=== PATIENT | female | born 1980 | race African-American/Black ===

== ENCOUNTER 2017-10-30 10:59 | Inpatient (IN) | payer SELFPAY ==
[2017-10-30] MEDS ORDERED: NORMAL SALINE 1000 ML 1,000 ML IV ONE (12:59)
[2017-10-30] MEDS ORDERED: ONDANSETRON HCL INJ/PF 4 MG/2 ML SDV IV ONE (12:59)
[2017-10-30 13:41] LABS: ABSOLUTE BASOPHILS # (AUTO) 0.1 10^3/uL (0.0-0.2); ABSOLUTE LYMPHOCYTES (AUTO) 1.9 10^3/uL (0.5-4.7); ABSOLUTE MONOCYTES (AUTO) 1.9 10^3/uL (0.1-1.4); ABSOLUTE NEUT (AUTO) 15.8 10^3/uL (1.7-8.2); BASOPHILS % (AUTO) 0.4 % (0-2); EOSINOPHILS % (AUTO) 0.1 % (0-6); HEMATOCRIT 39.2 % (36.0-47.0); HEMOGLOBIN 13.3 g/dL (12.0-15.5); LYMPHOCYTES % (AUTO) 9.8 % (13-45); MEAN CORPUSCULAR HEMOGLOBIN 29.7 pg (27.0-33.4); MEAN CORPUSCULAR HGB CONC 33.9 g/dL (32.0-36.0); MEAN CORPUSCULAR VOLUME 88 fl (80-97); MONOCYTES % (AUTO) 9.9 % (3-13); PLATELET COUNT 361 10^3/uL (150-450); RED BLOOD COUNT 4.48 10^6/uL (3.72-5.28); RED CELL DISTRIBUTION WIDTH 13.4 % (11.5-14.0); SEGMENTED NEUTROPHILS % (AUTO) 79.8 % (42-78); TOTAL CELLS COUNTED % (AUTO) 100 %; WHITE BLOOD COUNT 19.7 10^3/uL (4.0-10.5)
[2017-10-30 13:53] LABS: ALANINE AMINOTRANSFERASE 23 U/L (9-52); ALBUMIN 4.4 g/dL (3.5-5.0); ALKALINE PHOSPHATASE 67 U/L (38-126); ANION GAP 8 (5-19); ASPARTATE AMINO TRANSFERASE 29 U/L (14-36); BILIRUBIN,DIRECT 0.4 mg/dL (0.0-0.4); BILIRUBIN,TOTAL 0.9 mg/dL (0.2-1.3); BLOOD UREA NITROGEN 9 mg/dL (7-20); CALCIUM 9.4 mg/dL (8.4-10.2); CARBON DIOXIDE 29 mmol/L (22-30); CHLORIDE 101 mmol/L (98-107); GLUCOSE 123 mg/dL (75-110); LIPASE 22.2 U/L (23-300); SODIUM 137.9 mmol/L (137-145); TOTAL PROTEIN 7.9 g/dL (6.3-8.2)
[2017-10-30] MEDS ORDERED: CEFTRIAXONE INJ 1000 MG VIAL IV ONE (14:41)
[2017-10-30 14:45] LABS: APPEARANCE,URINE CLEAR; BILIRUBIN,URINE NEGATIVE (NEGATIVE); COLOR,URINE YELLOW; GLUCOSE, URINE NEGATIVE (NEGATIVE); KETONES,URINE NEGATIVE (NEGATIVE); LEUKOCYTE ESTERASE,URINE NEGATIVE (NEGATIVE); NITRITE,URINE NEGATIVE (NEGATIVE); PROTEIN,URINE NEGATIVE (NEGATIVE); URINE SPECIFIC GRAVITY 1.015; UROBILINOGEN,URINE NEGATIVE mg/dL (<2.0)
--- NOTE | 2017-10-30 15:40 | ER Document Report ---
ED General - General Chief Complaint: Pain All Over Stated Complaint: SIDE PAIN Time Seen by Provider: 10/30/17 12:58 Mode of Arrival: Ambulatory Information source: Patient Notes: 37-year-old female diabetic presents with complaints of right flank pain urinary frequency over the past day. Patient notes body aches fever today. She denies any vomiting admits to nausea TRAVEL OUTSIDE OF THE [place] IN LAST 30 DAYS: No - HPI Onset: Yesterday Onset/Duration: Persistent Quality of pain: Achy Severity: Mild Pain Level: 1 Associated symptoms: Body/muscle aches, Fever, Other Exacerbated by: Denies Relieved by: Denies Similar symptoms previously: No Recently seen / treated by doctor: No - Related Data Allergies/Adverse Reactions: No Known Allergies Allergy (Verified 10/30/17 11:00) Past Medical History - Social History Smoking Status: Never Smoker Cigarette use (# per day): No Chew tobacco use (# tins/day): No Smoking Education Provided: No Frequency of alcohol use: Occasional Drug Abuse: None Family History: Reviewed & Not Pertinent Patient has suicidal ideation: No Patient has homicidal ideation: No - Past Medical History Cardiac Medical History: Reports: Hx Hypertension Endocrine Medical History: Reports: Hx Diabetes Mellitus Type 2 Renal/ Medical History: Denies: Hx Peritoneal Dialysis - Immunizations Hx Diphtheria, Pertussis, Tetanus Vaccination: No Review of Systems - Review of Systems Notes: REVIEW OF SYSTEMS: CONSTITUTIONAL : Admits to fever EENT: Denies eye, ear, throat, or mouth pain or symptoms. Denies nasal or sinus congestion or discharge. Denies throat, tongue, or mouth swelling or difficulty swallowing. CARDIOVASCULAR: Denies chest pain. Denies palpitations or racing or irregular heart beat. Denies ankle edema. RESPIRATORY: Denies cough, cold, or chest congestion. Denies shortness of breath, difficulty breathing, or wheezing. GASTROINTESTINAL: Admits to flank pain GENITOURINARY: Admits to urinary frequency FEMALE GENITOURINARY: Denies vaginal bleeding, heavy or abnormal periods, irregular periods. Denies vaginal discharge or odor. MUSCULOSKELETAL: Denies back or neck pain or stiffness. Denies joint pain or swelling. SKIN: Denies rash, lesions or sores. HEMATOLOGIC : Denies easy bruising or bleeding. LYMPHATIC: Denies swollen, enlarged glands. NEUROLOGICAL: Denies confusion or altered mental status. Denies passing out or loss of consciousness. Denies dizziness or lightheadedness. Denies headache. Denies weakness or paralysis or loss of use of either side. Denies problems with gait or speech. Denies sensory loss, numbness, or tingling. Denies seizures. PSYCHIATRIC: Denies anxiety or stress. Denies depression, suicidal ideation, or homicidal ideation. ALL OTHER SYSTEMS REVIEWED AND NEGATIVE. PHYSICAL EXAMINATION: GENERAL: Well-appearing, well-nourished and in no acute distress. Febrile HEAD: Atraumatic, normocephalic. EYES: Pupils equal round and reactive to light, extraocular movements intact, conjunctiva are normal. ENT: Nares patent, oropharynx clear without exudates. Moist mucous membranes. NECK: Normal range of motion, supple without lymphadenopathy LUNGS: Breath sounds clear to auscultation bilaterally and equal. No wheezes rales or rhonchi. HEART: Regular rate and rhythm without murmurs ABDOMEN: Soft, nontender, nondistended abdomen. No guarding, no rebound. No masses appreciated. Right CVA tenderness Female : deferred Musculoskeletal: Normal range of motion, no pitting or edema. No cyanosis. NEUROLOGICAL: Cranial nerves grossly intact. Normal speech, normal gait. Normal sensory, motor exams PSYCH: Normal mood, normal affect. SKIN: Warm, Dry, normal turgor, no rashes or lesions noted. Dictation was performed using Sequence voice recognition software Physical Exam - Vital signs Vitals: Temp Pulse Resp BP Pulse Ox 102.5 F H 98 18 127/71 H 99 10/30/17 11:13 10/30/17 11:13 10/30/17 11:13 10/30/17 11:13 10/30/17 11:13 Course - Re-evaluation Re-evalutation: 10/30/17 15:39 Patient is noted to have white count 19.7, her urine has moderate amount of blood, patient states that she has regular menses and is unsure if his menses related, no obvious sign of infection is noted on the however I will start off at a dose of Rocephin here in the emergency department, 2 bags of IV fluids have been given patient's blood sugars well controlled she overall looks well was noted to be febrile upon arrival, given on the symptoms a CT has been ordered to rule out any abnormality otherwise this may just be a viral syndrome however I have explained to the patient that I will be very cautious with her given the history of diabetes 10/30/17 15:56 Surgeon has been consulted for valuation patient my concern is for appendicitis of the CT she is interested in the patient's pain is predominantly right upper - Vital Signs Vital signs: Temp Pulse Resp BP Pulse Ox 102.5 F H 98 18 127/71 H 99 10/30/17 11:13 10/30/17 11:13 10/30/17 11:13 10/30/17 11:13 10/30/17 11:13 - Laboratory Result Diagrams: 10/30/17 13:19 10/30/17 13:19 Laboratory results interpreted by me: 10/30/17 10/30/17 10/30/17 13:05 13:19 13:19 WBC 19.7 H Seg Neutrophils % 79.8 H Lymphocytes % 9.8 L Absolute Neutrophils 15.8 H Absolute Monocytes 1.9 H Glucose 123 H Lipase 22.2 L Urine Blood MODERATE H Discharge - Discharge Clinical Impression: Diverticulitis Fever Qualifiers: Fever type: unspecified Qualified Code(s): R50.9 - Fever, unspecified Abdominal pain Qualifiers: Abdominal location: right upper quadrant Qualified Code(s): R10.11 - Right upper quadrant pain Condition: Fair Disposition: ADMITTED INPATIENT Admitting Provider: Hospitalist Unit Admitted: Telemetry
[2017-10-30] MEDS ORDERED: METRONIDAZOLE 500 MG/NS RTU 250 MG in CONTAINER,EMPTY 1 EACH IV SCH (16:15)
--- NOTE | 2017-10-30 16:17 | RADIOLOGY REPORT (SQ) ---
EXAM DESCRIPTION: CT ABD/PELVIS WITH IV ONLY COMPLETED DATE/TIME: 10/30/2017 3:51 pm REASON FOR STUDY: abd pain COMPARISON: None. TECHNIQUE: CT scan of the abdomen and pelvis performed using helical scanning technique with dynamic intravenous contrast injection. No oral contrast. Images reviewed with lung, soft tissue, and bone windows. Reconstructed coronal and sagittal MPR images reviewed. Delayed images for evaluation of the urinary system also acquired. All images stored on PACS. All CT scanners at this facility use dose modulation, iterative reconstruction, and/or weight based d osing when appropriate to reduce radiation dose to as low as reasonably achievable (ALARA). [facility]: Dose Right [facility]: CareDose [facility]: Dose Right [facility]: Teradose 4D [facility]: [employer] CONTRAST TYPE AND DOSE: contrast/concentration: Isovue 370.00 mg/ml; Total Contrast Delivered: 100.0 ml; Total Saline Delivered: 71.0 ml RENAL FUNCTION: Creatinine 0.7 RADIATION DOSE: CT Rad equipment meets quality standard of care and radiation dose reduction techniq ues were employed. CTDIvol: 21.1 - 21.1 mGy. DLP: 2257 mGy-cm.. LIMITATIONS: None. FINDINGS: The appendix is normal. There is colon wall thickening, luminal narrowing, and surrounding inflammation along the lateral asp ect of the cecum, with an inflamed diverticulum of the right colon measuring 13 mm in diameter filled with radiopaque debris on axial image 56. These findings are worrisome for right-sided colonic dive rticulitis. No well circumscribed abscess. No extraluminal air. Findings discussed with Dr. Raul valdez, 1600 hours 10/30/2017. LOWER CHEST: No significant findings. No nodules or infiltrates. LIVER: Normal size. No masses. No dilated ducts. SPLEEN: Normal size. No focal lesions. PANCREAS: No masses. No significant calcifications. No adjacent inflammation or peripancreatic fluid collections. Pancreatic duct not dilated. GALLBLADDER: No identified stones by CT criteria. No inflammatory changes to suggest cholecystitis. ADRENAL GLANDS: No significant masses or asymmetry. RIGHT KIDNEY AND URETER: No solid masses. No significant calcifications. No hydronephrosis or hyd roureter. LEFT KIDNEY AND URETER: No solid masses. No significant calcifications. No hydronephrosis or hydr oureter. AORTA AND VESSELS: No aneurysm. No dissection. Renal arteries, SMA, celiac without stenosis. RETROPERITONEUM: No retroperitoneal adenopathy, hemorrhage or masses. BOWEL AND PERITONEAL CAVITY: Right-sided colonic diverticulitis as above. Gastrointestinal tract oth erwise unremarkable. APPENDIX: Normal. PELVIS: No mass. No free fluid. Normal bladder. Normal size uterus and ovaries. 3.5 cm cyst left o vary. ABDOMINAL WALL: No masses. No hernias. BONES: No significant or acute findings. OTHER: No other significant finding. IMPRESSION: Diverticulitis along the right colon. Local inflammation in the pericolic fat without w ell-circumscribed abscess or free air. Normal appendix TECHNICAL DOCUMENTATION: JOB ID: [id number] Quality ID # [id number]: Final reports with documentation of one or more dose reduction techniques (e.g., Au tomated exposure control, adjustment of the mA and/or kV according to patient size, use of iterative reconstruction technique) 2010 [employer]- All Rights Reserved
[2017-10-30] MEDS ORDERED: HYDROMORPHONE HCL INJ/PF 2 MG/ML AMPULE IV ONE (16:38)
[2017-10-30] MEDS: NORMAL SALINE 1000 ML 1,000 ML IV PRN ×4 (16:40→20:28)
[2017-10-30] MEDS ORDERED: CIPROFLOXACIN 400 MG/D5W RTU 400 MG/200 ML RTUPB IV SCH (18:00)
[2017-10-30] MEDS ORDERED: GLUCAGON,HUMAN RECOMB 1 MG INJ IM PRN (18:13)
[2017-10-30] MEDS ORDERED: DEXTROSE 40% GEL 15 GM TUBE PO PRN ×2 (18:13)
[2017-10-30] MEDS ORDERED: DEXTROSE 50%-WATER 25 GM/50 ML DISP.SYRIN IV PRN ×2 (18:13)
[2017-10-30] MEDS ORDERED: INSULIN LISPRO 100 UNIT/ML 3 ML VIAL SUBCUT PRN (18:13)
--- NOTE | 2017-10-30 18:34 | PDOC CONSULTATION ---
Consultation Consult Date: 10/30/17 Attending physician:: Fabian Yu Consult reason:: right colonic diverticulitis History of Present Illness Admission Date/PCP: 10/30/17 16:35 History of Present Illness: LING GOLDSTEIN is a 37 year old female who presented to the ER with right lower abdominal pain that started 2 days ago. The pain was like a bloating discomfort when it first started but by yesterday became sharper. She had several episodes of nausea and vomiting yesterday. She some urinary frequency but no constipation or diarrhea. She presented to the ER today where a CT abdomen/pelvis was obtained and confirmed the diagnosis of right sided colonic diverticulitis with a normal appearing appendix. Past Medical History Cardiac Medical History: Reports: Hypertension Endocrine Medical History: Reports: Diabetes Mellitus Type 2 Social History Smoking Status: Never Smoker Family History Family History: Reviewed & Not Pertinent Parental Family History Reviewed: No Children Family History Reviewed: Unknown Sibling(s) Family History Reviewed.: Unknown Medication/Allergy Home Medications: Cholecalciferol (Vitamin D3) [Vitamin D3] 1,000 unit PO DAILY 10/30/17 Lisinopril [Zestril] 5 mg PO DAILY 10/30/17 Metformin HCl [Glucophage 500 mg Tablet] 500 mg PO DAILY 10/30/17 Multivitamin [Multiple Vitamins] 1 tab PO DAILY 10/30/17 Allergies/Adverse Reactions: No Known Allergies Allergy (Verified 10/30/17 11:00) Physical Exam Vital Signs: Temp Pulse Resp BP Pulse Ox 102.5 F H 98 18 127/71 H 99 10/30/17 11:13 10/30/17 11:13 10/30/17 11:13 10/30/17 11:13 10/30/17 11:13 General appearance: PRESENT: no acute distress, morbidly obese Head exam: PRESENT: atraumatic, normocephalic Eye exam: PRESENT: conjunctiva pink, EOMI, PERRLA. ABSENT: scleral icterus Ear exam: PRESENT: normal external ear exam Neck exam: ABSENT: carotid bruit, JVD, lymphadenopathy, thyromegaly Respiratory exam: PRESENT: clear to auscultation [place]. ABSENT: rales, rhonchi, wheezes Cardiovascular exam: PRESENT: RRR. ABSENT: diastolic murmur, rubs, systolic murmur GI/Abdominal exam: PRESENT: rebound - RLQ and flank tenderness with rebound, tenderness Neurological exam: PRESENT: alert, awake, oriented to person, oriented to place , oriented to time, oriented to situation, CN II-XII grossly intact. ABSENT: motor sensory deficit Psychiatric exam: PRESENT: appropriate affect, normal mood. ABSENT: homicidal ideation, suicidal ideation Results Laboratory Results: 10/30/17 16:45 Lactic Acid 0.9 Impressions: Abdomen/Pelvis CT 10/30/17 14:50 IMPRESSION: Diverticulitis along the right colon. Local inflammation in the pericolic fat without well-circumscribed abscess or free air. Normal appendix Assessment & Plan - Plan Summary Plan Summary: ASSESSMENT: Right Colonic Diverticulitis PLAN: She is admitted to the hospitalist Keep NPO IV Fluids IV antibiotics with broad coverage - like zosyn 3,375 g iv Q 6hr Analgesia DVT prophylaxis Daily CBC Surgery will continue to follow - if the diverticulitis is controlled with the antibiotics then she may not require surgery on this admission but will need to have a colonoscopy in 6 weeks after recovery.
--- NOTE | 2017-10-30 18:38 | PDOC H&P ---
History of Present Illness Admission Date/PCP: 10/30/17 16:35 Patient complains of: Right-sided abdominal pain History of Present Illness: LING GOLDSTEIN is a 37 year old female presents to hospital with complaint of right-sided abdominal pain that began yesterday. Patient states she has had fever, sweating, nausea, and vomiting. Patient states she has vomited twice. Patient could not reported she had any blood in her vomit because she states that she vomited and swallowed it back down. Patient states that she has never had pain like this before. Past Medical History Cardiac Medical History: Reports: Hypertension Endocrine Medical History: Reports: Diabetes Mellitus Type 2 Past Surgical History Past Surgical History: Reports: None Social History Information Source: Patient Lives with: Alone Smoking Status: Never Smoker Frequency of Alcohol Use: None Hx Recreational Drug Use: No Hx Prescription Drug Abuse: No - Advance Directive Resuscitation Status: Full Code Family History Family History: Arthritis, DM, Hyperlipidemia, Other - Lupus Parental Family History Reviewed: Yes Children Family History Reviewed: Yes Sibling(s) Family History Reviewed.: Yes Medication/Allergy Home Medications: Cholecalciferol (Vitamin D3) [Vitamin D3] 1,000 unit PO DAILY 10/30/17 Lisinopril [Zestril] 5 mg PO DAILY 10/30/17 Metformin HCl [Glucophage 500 mg Tablet] 500 mg PO DAILY 10/30/17 Multivitamin [Multiple Vitamins] 1 tab PO DAILY 10/30/17 Allergies/Adverse Reactions: No Known Allergies Allergy (Verified 10/30/17 11:00) Review of Systems Constitutional: PRESENT: chills, fever(s). ABSENT: headache(s), weight gain, weight loss Eyes: ABSENT: visual disturbances Ears: ABSENT: hearing changes Cardiovascular: ABSENT: chest pain, dyspnea on exertion, edema, orthropnea, palpitations Respiratory: ABSENT: cough, hemoptysis Gastrointestinal: PRESENT: abdominal pain, nausea, vomiting. ABSENT: diarrhea, hematemesis, hematochezia Genitourinary: ABSENT: dysuria, hematuria Musculoskeletal: PRESENT: back pain. ABSENT: joint swelling Integumentary: ABSENT: rash, wounds Neurological: ABSENT: abnormal gait, abnormal speech, confusion, dizziness, focal weakness, syncope Psychiatric: ABSENT: anxiety, depression, homidical ideation, suicidal ideation Endocrine: ABSENT: cold intolerance, heat intolerance, polydipsia, polyuria Hematologic/Lymphatic: ABSENT: easy bleeding, easy bruising Physical Exam Vital Signs: Temp Pulse Resp BP Pulse Ox 102.5 F H 98 18 127/71 H 99 10/30/17 11:13 10/30/17 11:13 10/30/17 11:13 10/30/17 11:13 10/30/17 11:13 General appearance: PRESENT: mild distress, well-developed, well-nourished Head exam: PRESENT: atraumatic, normocephalic Eye exam: PRESENT: conjunctiva pink, EOMI. ABSENT: scleral icterus Ear exam: PRESENT: normal external ear exam Mouth exam: PRESENT: moist, tongue midline Neck exam: ABSENT: carotid bruit, JVD, lymphadenopathy, thyromegaly Respiratory exam: PRESENT: clear to auscultation [place]. ABSENT: rales, rhonchi, wheezes Cardiovascular exam: PRESENT: RRR. ABSENT: diastolic murmur, rubs, systolic murmur Pulses: PRESENT: normal dorsalis pedis pul Vascular exam: PRESENT: normal capillary refill GI/Abdominal exam: PRESENT: guarding, hypoactive bowel sounds, normal bowel sounds, tenderness - Right lower quadrant Rectal exam: PRESENT: deferred Extremities exam: PRESENT: full ROM. ABSENT: calf tenderness, clubbing, pedal edema Musculoskeletal exam: PRESENT: full ROM Neurological exam: PRESENT: alert, awake, oriented to person, oriented to place , oriented to time, oriented to situation, CN II-XII grossly intact. ABSENT: motor sensory deficit Psychiatric exam: PRESENT: appropriate affect, normal mood. ABSENT: homicidal ideation, suicidal ideation Skin exam: PRESENT: dry, intact, warm. ABSENT: cyanosis, rash Results Laboratory Results: 10/30/17 16:45 Lactic Acid 0.9 Impressions: Abdomen/Pelvis CT 10/30/17 14:50 IMPRESSION: Diverticulitis along the right colon. Local inflammation in the pericolic fat without well-circumscribed abscess or free air. Normal appendix Assessment & Plan - Diagnosis (1) Sepsis Is this a current diagnosis for this admission?: Yes Plan: Secondary to right-sided diverticulitis: ( Fever, Identified source, WBC) Cipro and Flagyl (2) Leukocytosis Is this a current diagnosis for this admission?: Yes Plan: secondary to Right sided Diverticulitis: Will continue Antibiotics (3) Emesis Is this a current diagnosis for this admission?: Yes Plan: Will write for Zofran. (4) Hypertension Is this a current diagnosis for this admission?: Yes Plan: Will hold Lisinopril due to pt's current state. (5) Diabetes type 2, no ocular involvement Is this a current diagnosis for this admission?: Yes Plan: We will place on sliding scale insulin and check hemoglobin A1c (6) Abdominal pain Qualifiers: Abdominal location: right upper quadrant Qualified Code(s): R10.11 - Right upper quadrant pain Is this a current diagnosis for this admission?: Yes Plan: Secondary to right-sided diverticulitis: We will place patient on Cipro and Flagyl. Surgery has been consulted. (7) Diverticulitis Is this a current diagnosis for this admission?: Yes Plan: Right-sided diverticulitis: Patient has been placed on Cipro and Flagyl. Surgery has been consulted. Patient is written for pain medication and nausea medication. (8) Fever Qualifiers: Fever type: unspecified Qualified Code(s): R50.9 - Fever, unspecified Is this a current diagnosis for this admission?: Yes Plan: Secondary to acute right-sided diverticulitis: We will monitor fever trend. Patient has order for Tylenol. (9) DVT prophylaxis Is this a current diagnosis for this admission?: Yes Plan: SCDs - Time Time Spent: 30 to 50 Minutes
[2017-10-30] MEDS: ACETAMINOPHEN 325 MG TABLET PO PRN ×2 (19:15→23:48)
[2017-10-30] MEDS ORDERED: NORMAL SALINE 1000 ML 1,000 ML IV PRN (20:21)
[2017-10-31] MEDS: OXYCODONE-ACETAMINOPHEN 5-325 MG TABLET PO PRN ×3 (04:30→15:24)
[2017-10-31] MEDS: LANSOPRAZOLE 30 MG TAB.RAP.DR PO SCH (06:41)
[2017-10-31 06:53] LABS: ABSOLUTE LYMPHOCYTES (AUTO) 1.5 10^3/uL (0.5-4.7); ABSOLUTE MONOCYTES (AUTO) 2.1 10^3/uL (0.1-1.4); BASOPHILS % (AUTO) 0.2 % (0-2); EOSINOPHILS % (AUTO) 0.2 % (0-6); HEMATOCRIT 31.3 % (36.0-47.0); LYMPHOCYTES % (AUTO) 8.4 % (13-45); MEAN CORPUSCULAR HGB CONC 34.5 g/dL (32.0-36.0); MEAN CORPUSCULAR VOLUME 87 fl (80-97); MONOCYTES % (AUTO) 11.8 % (3-13); PLATELET COUNT 286 10^3/uL (150-450); RED CELL DISTRIBUTION WIDTH 13.2 % (11.5-14.0); SEGMENTED NEUTROPHILS % (AUTO) 79.4 % (42-78); TOTAL CELLS COUNTED % (AUTO) 100 %; WHITE BLOOD COUNT 17.6 10^3/uL (4.0-10.5)
[2017-10-31 06:59] LABS: HEMOGLOBIN 10.8 g/dL (12.0-15.5)
[2017-10-31 07:12] LABS: ALANINE AMINOTRANSFERASE 18 U/L (9-52); ALBUMIN 3.3 g/dL (3.5-5.0); ALKALINE PHOSPHATASE 56 U/L (38-126); ANION GAP 9 (5-19); ASPARTATE AMINO TRANSFERASE 11 U/L (14-36); BILIRUBIN,DIRECT 0.1 mg/dL (0.0-0.4); BILIRUBIN,TOTAL 0.7 mg/dL (0.2-1.3); BLOOD UREA NITROGEN 6 mg/dL (7-20); CALCIUM 8.3 mg/dL (8.4-10.2); CARBON DIOXIDE 24 mmol/L (22-30); CHLORIDE 105 mmol/L (98-107); GLUCOSE 124 mg/dL (75-110); POTASSIUM 3.8 mmol/L (3.6-5.0); SODIUM 137.5 mmol/L (137-145); TOTAL PROTEIN 5.5 g/dL (6.3-8.2)
[2017-10-31] MEDS: PIPERACILLIN SODIUM/TAZOBACTAM 3.375 GM in NORMAL SALINE 100 ML IV SCH ×3 (10:25→20:32)
[2017-10-31] MEDS ORDERED: DEXTROSE 50%-WATER 25 GM/50 ML DISP.SYRIN IV PRN ×2 (18:26)
[2017-10-31] MEDS ORDERED: GLUCAGON,HUMAN RECOMB 1 MG INJ SUBCUT PRN (18:26)
[2017-10-31] MEDS ORDERED: DEXTROSE 40% GEL 15 GM TUBE PO PRN ×2 (18:26)
--- NOTE | 2017-10-31 18:28 | PDOC PROGRESS REPORT ---
Subjective Progress Note for:: 10/31/17 Subjective:: Pt states that she is still having abd pain. Pt states that she would like her diet advanced. Pt was took that we would not be able to do that. Reason For Visit: ACUTE RIGHTS SIDED DIVERTICULITIS Physical Exam Vital Signs: Temp Pulse Resp BP Pulse Ox 100.2 F 89 16 135/64 H 100 10/31/17 15:54 10/31/17 15:54 10/31/17 15:54 10/31/17 15:54 10/31/17 15:54 Pulse Oximeter Continuous Start: 10/30/17 18: 38 Freq: RTQ4 Status: Complete Document 10/31/17 06:59 SFL (Rec: 10/31/17 07:00 SFL [email or web address]) Pulse Oximetry Assessment Equipment Usage Equipment Standby Continuous SpO2 Machine # x Additional RT Notes Other patient refused. Intake & Output 10/30/17 10/31/17 11/01/17 06:59 06:59 06:59 Intake Total 120 200 Output Total 300 Balance -180 200 Weight 128.3 kg General appearance: PRESENT: no acute distress, well-developed, well-nourished Head exam: PRESENT: atraumatic, normocephalic Eye exam: PRESENT: conjunctiva pink, EOMI. ABSENT: scleral icterus Ear exam: PRESENT: normal external ear exam Mouth exam: PRESENT: moist, tongue midline Neck exam: ABSENT: carotid bruit, JVD, lymphadenopathy, thyromegaly Respiratory exam: PRESENT: clear to auscultation [place]. ABSENT: rales, rhonchi, wheezes Cardiovascular exam: PRESENT: RRR. ABSENT: diastolic murmur, rubs, systolic murmur Pulses: PRESENT: normal dorsalis pedis pul Vascular exam: PRESENT: normal capillary refill GI/Abdominal exam: PRESENT: tenderness - Right lower qd, + bowel sounds. Rectal exam: PRESENT: deferred Extremities exam: PRESENT: full ROM. ABSENT: calf tenderness, clubbing, pedal edema Neurological exam: PRESENT: alert, awake, oriented to person, oriented to place , oriented to time, oriented to situation, CN II-XII grossly intact. ABSENT: motor sensory deficit Psychiatric exam: PRESENT: appropriate affect, normal mood. ABSENT: homicidal ideation, suicidal ideation Skin exam: PRESENT: dry, intact, warm. ABSENT: cyanosis, rash Results Laboratory Results: 10/31/17 06:11 10/31/17 06:11 10/31/17 10/31/17 06:11 06:11 WBC 17.6 H RBC 3.60 L Hgb 10.8 L D Hct 31.3 L MCV 87 MCH 30.0 MCHC 34.5 RDW 13.2 Plt Count 286 Seg Neutrophils % 79.4 H Lymphocytes % 8.4 L Monocytes % 11.8 Eosinophils % 0.2 Basophils % 0.2 Absolute Neutrophils 14.0 H Absolute Lymphocytes 1.5 Absolute Monocytes 2.1 H Absolute Eosinophils 0.0 Absolute Basophils 0.0 Sodium 137.5 Potassium 3.8 Chloride 105 Carbon Dioxide 24 Anion Gap 9 BUN 6 L Creatinine 0.66 Est GFR ( Amer) > 60 Est GFR (Non-Af Amer) > 60 Glucose 124 H Calcium 8.3 L Total Bilirubin 0.7 AST 11 L ALT 18 Alkaline Phosphatase 56 Total Protein 5.5 L Albumin 3.3 L Impressions: Abdomen/Pelvis CT 10/30/17 14:50 IMPRESSION: Diverticulitis along the right colon. Local inflammation in the pericolic fat without well-circumscribed abscess or free air. Normal appendix Assessment & Plan - Diagnosis (1) Sepsis Is this a current diagnosis for this admission?: Yes Plan: Secondary to right-sided diverticulitis: ( Fever, Identified source, WBC) Zosyn (2) Leukocytosis Is this a current diagnosis for this admission?: Yes Plan: secondary to Right sided Diverticulitis: Will continue Antibiotics. Will consider repeat CT of ABD/Pelvis on Thursday. (3) Emesis Is this a current diagnosis for this admission?: Yes Plan: Will continue Zofran. (4) Hypertension Is this a current diagnosis for this admission?: Yes Plan: Will continue to monitor. (5) Diabetes type 2, no ocular involvement Is this a current diagnosis for this admission?: Yes Plan: Will continue SSI. (6) Abdominal pain Qualifiers: Abdominal location: right upper quadrant Qualified Code(s): R10.11 - Right upper quadrant pain Is this a current diagnosis for this admission?: Yes Plan: Secondary to right-sided diverticulitis: Will continue Zosyn. (7) Diverticulitis Is this a current diagnosis for this admission?: Yes Plan: Right-sided diverticulitis:Continue Zosyn. Will stop Full Liquid diet due to persistent fever. (8) Fever Qualifiers: Fever type: unspecified Qualified Code(s): R50.9 - Fever, unspecified Is this a current diagnosis for this admission?: Yes Plan: Secondary to acute right-sided diverticulitis: We will monitor fever trend. Patient has order for Tylenol. (9) DVT prophylaxis Is this a current diagnosis for this admission?: Yes Plan: SCDs - Time Time Spent with patient: 25-34 minutes
[2017-10-31] MEDS: ACETAMINOPHEN 325 MG TABLET PO PRN (20:32)
[2017-11-01] MEDS: OXYCODONE-ACETAMINOPHEN 5-325 MG TABLET PO PRN ×2 (00:27→09:33)
[2017-11-01] MEDS: ONDANSETRON HCL INJ/PF 4 MG/2 ML SDV IV PRN (00:29)
[2017-11-01] MEDS: PIPERACILLIN SODIUM/TAZOBACTAM 3.375 GM in NORMAL SALINE 100 ML IV SCH ×4 (02:59→22:33)
[2017-11-01] MEDS: LANSOPRAZOLE 30 MG TAB.RAP.DR PO SCH (05:02)
[2017-11-01 06:35] LABS: ALANINE AMINOTRANSFERASE 17 U/L (9-52); ALBUMIN 3.6 g/dL (3.5-5.0); ALKALINE PHOSPHATASE 68 U/L (38-126); ANION GAP 9 (5-19); ASPARTATE AMINO TRANSFERASE 17 U/L (14-36); BILIRUBIN,DIRECT 0.5 mg/dL (0.0-0.4); BILIRUBIN,TOTAL 0.9 mg/dL (0.2-1.3); BLOOD UREA NITROGEN 5 mg/dL (7-20); CALCIUM 8.8 mg/dL (8.4-10.2); CARBON DIOXIDE 26 mmol/L (22-30); CHLORIDE 102 mmol/L (98-107); GLUCOSE 126 mg/dL (75-110); MAGNESIUM 1.8 mg/dL (1.6-2.3); POTASSIUM 3.6 mmol/L (3.6-5.0); SODIUM 137.1 mmol/L (137-145); TOTAL PROTEIN 6.9 g/dL (6.3-8.2)
[2017-11-01 06:50] LABS: ABSOLUTE BASOPHILS # (AUTO) 0.1 10^3/uL (0.0-0.2); ABSOLUTE LYMPHOCYTES (AUTO) 1.5 10^3/uL (0.5-4.7); ABSOLUTE NEUT (AUTO) 14.9 10^3/uL (1.7-8.2); BASOPHILS % (AUTO) 0.3 % (0-2); EOSINOPHILS % (AUTO) 0.1 % (0-6); HEMATOCRIT 33.2 % (36.0-47.0); HEMOGLOBIN 11.3 g/dL (12.0-15.5); LYMPHOCYTES % (AUTO) 8.2 % (13-45); MEAN CORPUSCULAR HEMOGLOBIN 29.6 pg (27.0-33.4); MEAN CORPUSCULAR HGB CONC 34.1 g/dL (32.0-36.0); MEAN CORPUSCULAR VOLUME 87 fl (80-97); MONOCYTES % (AUTO) 10.6 % (3-13); PLATELET COUNT 265 10^3/uL (150-450); RED BLOOD COUNT 3.82 10^6/uL (3.72-5.28); SEGMENTED NEUTROPHILS % (AUTO) 80.8 % (42-78); TOTAL CELLS COUNTED % (AUTO) 100 %; WHITE BLOOD COUNT 18.5 10^3/uL (4.0-10.5)
[2017-11-01] MEDS: ACETAMINOPHEN 325 MG TABLET PO PRN (07:37)
--- NOTE | 2017-11-01 10:53 | PDOC PROGRESS REPORT ---
Subjective Progress Note for:: 11/01/17 Subjective:: Pt states that she is having pain with urination and bowel movements. Pt states that she is having pain with breathing. Pt states that she had a fever this morning. Reason For Visit: ACUTE RIGHTS SIDED DIVERTICULITIS Physical Exam Vital Signs: Temp Pulse Resp BP Pulse Ox 102.1 F H 95 16 134/73 H 100 11/01/17 07:22 11/01/17 07:22 11/01/17 07:22 11/01/17 07:22 11/01/17 07:22 Pulse Oximeter Continuous Start: 10/30/17 18: 38 Freq: RTQ4 Status: Complete Document 10/31/17 06:59 SFL (Rec: 10/31/17 07:00 SFL [email or web address]) Pulse Oximetry Assessment Equipment Usage Equipment Standby Continuous SpO2 Machine # x Additional RT Notes Other patient refused. Intake & Output 10/31/17 11/01/17 11/02/17 06:59 06:59 06:59 Intake Total 120 2000 Output Total 300 1500 Balance -180 500 Weight 128.3 kg 128.3 kg General appearance: PRESENT: no acute distress, well-developed, well-nourished Head exam: PRESENT: atraumatic, normocephalic Eye exam: PRESENT: conjunctiva pink, EOMI. ABSENT: scleral icterus Ear exam: PRESENT: normal external ear exam Mouth exam: PRESENT: moist, tongue midline Neck exam: ABSENT: carotid bruit, JVD, lymphadenopathy, thyromegaly Respiratory exam: PRESENT: clear to auscultation [place]. ABSENT: rales, rhonchi, wheezes Cardiovascular exam: PRESENT: RRR. ABSENT: diastolic murmur, rubs, systolic murmur Pulses: PRESENT: normal dorsalis pedis pul Vascular exam: PRESENT: normal capillary refill GI/Abdominal exam: PRESENT: normal bowel sounds, tenderness, other - obese. ABSENT: distended, guarding, mass, organolmegaly, rebound Rectal exam: PRESENT: deferred Extremities exam: PRESENT: full ROM. ABSENT: calf tenderness, clubbing, pedal edema Musculoskeletal exam: PRESENT: full ROM Neurological exam: PRESENT: alert, awake, oriented to person, oriented to place , oriented to time, oriented to situation, CN II-XII grossly intact. ABSENT: motor sensory deficit Psychiatric exam: PRESENT: appropriate affect, normal mood. ABSENT: homicidal ideation, suicidal ideation Skin exam: PRESENT: dry, intact, warm. ABSENT: cyanosis, rash Results Laboratory Results: 11/01/17 05:00 11/01/17 05:00 11/01/17 11/01/17 05:00 05:00 WBC 18.5 H RBC 3.82 Hgb 11.3 L Hct 33.2 L MCV 87 MCH 29.6 MCHC 34.1 RDW 13.0 Plt Count 265 Seg Neutrophils % 80.8 H Lymphocytes % 8.2 L Monocytes % 10.6 Eosinophils % 0.1 Basophils % 0.3 Absolute Neutrophils 14.9 H Absolute Lymphocytes 1.5 Absolute Monocytes 2.0 H Absolute Eosinophils 0.0 Absolute Basophils 0.1 Sodium 137.1 Potassium 3.6 Chloride 102 Carbon Dioxide 26 Anion Gap 9 BUN 5 L Creatinine 0.68 Est GFR ( Amer) > 60 Est GFR (Non-Af Amer) > 60 Glucose 126 H Calcium 8.8 Magnesium 1.8 Total Bilirubin 0.9 AST 17 ALT 17 Alkaline Phosphatase 68 Total Protein 6.9 Albumin 3.6 Impressions: Abdomen/Pelvis CT 10/30/17 14:50 IMPRESSION: Diverticulitis along the right colon. Local inflammation in the pericolic fat without well-circumscribed abscess or free air. Normal appendix Assessment & Plan - Diagnosis (1) Sepsis Is this a current diagnosis for this admission?: Yes Plan: Secondary to right-sided diverticulitis with concern for Abscess Formation: ( Fever, Identified source, WBC) Will continue Zosyn. Surgery is following pt due to concern that pt will have to go to OR. Will plan to repeat CT of ABD and Pelvis on Thursday. (2) Leukocytosis Is this a current diagnosis for this admission?: Yes Plan: secondary to Right sided Diverticulitis: Will continue Antibiotic. Will consider repeat CT of ABD/Pelvis on Thursday. Pt Leukocytosis has not improved. Will continue to monitor. (3) Emesis Is this a current diagnosis for this admission?: Yes Plan: Will continue Zofran. (4) Hypertension Is this a current diagnosis for this admission?: Yes Plan: Will continue to monitor. (5) Diabetes type 2, no ocular involvement Is this a current diagnosis for this admission?: Yes Plan: Hemoglobin A1C of 6.7: Will continue SSI. (6) Abdominal pain Qualifiers: Abdominal location: right upper quadrant Qualified Code(s): R10.11 - Right upper quadrant pain Is this a current diagnosis for this admission?: Yes Plan: Secondary to right-sided diverticulitis with concern for possible abscess formation: Will continue Zosyn. Surgery following due to concern for possible OR. (7) Diverticulitis Is this a current diagnosis for this admission?: Yes Plan: Right-sided diverticulitis:Continue Zosyn. NPO except for medication (8) Fever Qualifiers: Fever type: unspecified Qualified Code(s): R50.9 - Fever, unspecified Is this a current diagnosis for this admission?: Yes Plan: Secondary to acute right-sided diverticulitis: We will monitor fever trend. Patient has order for Tylenol and Percocet 5/325 mg (9) DVT prophylaxis Is this a current diagnosis for this admission?: Yes Plan: SCDs - Time Time Spent with patient: 15-24 minutes
[2017-11-01] MEDS: HYDROMORPHONE HCL INJ/PF 2 MG/ML AMPULE IV PRN ×2 (15:29→22:41)
[2017-11-02] MEDS: PIPERACILLIN SODIUM/TAZOBACTAM 3.375 GM in NORMAL SALINE 100 ML IV SCH ×4 (03:59→22:50)
[2017-11-02 04:52] LABS: ABSOLUTE EOSINOPHILS # (AUTO) 0.1 10^3/uL (0.0-0.6); ABSOLUTE LYMPHOCYTES (AUTO) 2.3 10^3/uL (0.5-4.7); ABSOLUTE MONOCYTES (AUTO) 1.4 10^3/uL (0.1-1.4); ABSOLUTE NEUT (AUTO) 9.8 10^3/uL (1.7-8.2); BASOPHILS % (AUTO) 0.2 % (0-2); EOSINOPHILS % (AUTO) 0.5 % (0-6); HEMATOCRIT 30.2 % (36.0-47.0); HEMOGLOBIN 10.3 g/dL (12.0-15.5); MEAN CORPUSCULAR HEMOGLOBIN 29.6 pg (27.0-33.4); MEAN CORPUSCULAR HGB CONC 33.9 g/dL (32.0-36.0); MEAN CORPUSCULAR VOLUME 87 fl (80-97); MONOCYTES % (AUTO) 10.2 % (3-13); PLATELET COUNT 350 10^3/uL (150-450); RED BLOOD COUNT 3.47 10^6/uL (3.72-5.28); RED CELL DISTRIBUTION WIDTH 13.2 % (11.5-14.0); SEGMENTED NEUTROPHILS % (AUTO) 72.1 % (42-78); TOTAL CELLS COUNTED % (AUTO) 100 %; WHITE BLOOD COUNT 13.6 10^3/uL (4.0-10.5)
[2017-11-02 05:23] LABS: ALANINE AMINOTRANSFERASE 16 U/L (9-52); ALKALINE PHOSPHATASE 58 U/L (38-126); ANION GAP 10 (5-19); ASPARTATE AMINO TRANSFERASE 12 U/L (14-36); BILIRUBIN,DIRECT 0.2 mg/dL (0.0-0.4); BILIRUBIN,TOTAL 0.5 mg/dL (0.2-1.3); BLOOD UREA NITROGEN 6 mg/dL (7-20); CALCIUM 8.7 mg/dL (8.4-10.2); CARBON DIOXIDE 25 mmol/L (22-30); CHLORIDE 104 mmol/L (98-107); GLUCOSE 88 mg/dL (75-110); MAGNESIUM 1.8 mg/dL (1.6-2.3); POTASSIUM 3.7 mmol/L (3.6-5.0); SODIUM 139.3 mmol/L (137-145); TOTAL PROTEIN 5.4 g/dL (6.3-8.2)
[2017-11-02] MEDS: LANSOPRAZOLE 30 MG TAB.RAP.DR PO SCH (06:54)
[2017-11-02] MEDS: RINGERS SOLUTION,LACTATED 1,000 ML IV PRN (07:04)
[2017-11-02] MEDS: HYDROMORPHONE HCL INJ/PF 2 MG/ML AMPULE IV PRN (08:24)
[2017-11-02] MEDS: ONDANSETRON HCL INJ/PF 4 MG/2 ML SDV IV PRN ×3 (08:29→22:51)
[2017-11-02] MEDS ORDERED: VANCOMYCIN HCL 0 MG in DEXTROSE 5%-WATER 250 ML IV NR (11:00)
--- NOTE | 2017-11-02 11:06 | PDOC PROGRESS REPORT ---
Subjective Progress Note for:: 11/02/17 Subjective:: Pt states that her abd pain has improved. Pt states that she had a bowel movement yesterday. Pt states that the abd abdominal tenderness has decrease. Reason For Visit: ACUTE RIGHTS SIDED DIVERTICULITIS Physical Exam Vital Signs: Temp Pulse Resp BP Pulse Ox 98.3 F 65 17 133/71 H 97 11/02/17 04:08 11/02/17 04:08 11/02/17 04:08 11/02/17 04:08 11/02/17 04:08 Pulse Oximeter Continuous Start: 10/30/17 18: 38 Freq: RTQ4 Status: Complete Document 10/31/17 06:59 SFL (Rec: 10/31/17 07:00 SFL [email or web address]) Pulse Oximetry Assessment Equipment Usage Equipment Standby Continuous SpO2 Machine # x Additional RT Notes Other patient refused. Intake & Output 11/01/17 11/02/17 11/03/17 06:59 06:59 06:59 Intake Total 2000 1355 Output Total 1500 575 Balance 500 780 Weight 128.3 kg 128 kg General appearance: PRESENT: no acute distress, well-developed, well-nourished Head exam: PRESENT: atraumatic, normocephalic Eye exam: PRESENT: conjunctiva pink, EOMI. ABSENT: scleral icterus Ear exam: PRESENT: normal external ear exam Mouth exam: PRESENT: moist, tongue midline Neck exam: ABSENT: carotid bruit, JVD, lymphadenopathy, thyromegaly Respiratory exam: PRESENT: clear to auscultation [place]. ABSENT: rales, rhonchi, wheezes Cardiovascular exam: PRESENT: RRR. ABSENT: diastolic murmur, rubs, systolic murmur Pulses: PRESENT: normal dorsalis pedis pul Vascular exam: PRESENT: normal capillary refill GI/Abdominal exam: PRESENT: normal bowel sounds, tenderness - right lower qd tenderness Rectal exam: PRESENT: deferred Extremities exam: PRESENT: full ROM. ABSENT: calf tenderness, clubbing, pedal edema Musculoskeletal exam: PRESENT: full ROM Neurological exam: PRESENT: alert, awake, oriented to person, oriented to place , oriented to time, oriented to situation, CN II-XII grossly intact. ABSENT: motor sensory deficit Psychiatric exam: PRESENT: appropriate affect, normal mood. ABSENT: homicidal ideation, suicidal ideation Skin exam: PRESENT: dry, intact, warm. ABSENT: cyanosis, rash Results Laboratory Results: 11/02/17 04:32 11/02/17 04:32 11/02/17 11/02/17 04:32 04:32 WBC 13.6 H RBC 3.47 L Hgb 10.3 L Hct 30.2 L MCV 87 MCH 29.6 MCHC 33.9 RDW 13.2 Plt Count 350 Seg Neutrophils % 72.1 Lymphocytes % 17.0 Monocytes % 10.2 Eosinophils % 0.5 Basophils % 0.2 Absolute Neutrophils 9.8 H Absolute Lymphocytes 2.3 Absolute Monocytes 1.4 Absolute Eosinophils 0.1 Absolute Basophils 0.0 Sodium 139.3 Potassium 3.7 Chloride 104 Carbon Dioxide 25 Anion Gap 10 BUN 6 L Creatinine 0.65 Est GFR ( Amer) > 60 Est GFR (Non-Af Amer) > 60 Glucose 88 Calcium 8.7 Magnesium 1.8 Total Bilirubin 0.5 AST 12 L ALT 16 Alkaline Phosphatase 58 Total Protein 5.4 L Albumin 3.0 L Impressions: Abdomen/Pelvis CT 10/30/17 14:50 IMPRESSION: Diverticulitis along the right colon. Local inflammation in the pericolic fat without well-circumscribed abscess or free air. Normal appendix Assessment & Plan - Diagnosis (1) Sepsis Is this a current diagnosis for this admission?: Yes Plan: Secondary to right-sided diverticulitis with concern for Abscess Formation: ( Fever, Identified source, WBC) Will continue Zosyn. Will repeat CT of abd/ pelvis today. (2) Diverticulitis Is this a current diagnosis for this admission?: Yes (3) Bacteremia Is this a current diagnosis for this admission?: Yes Plan: Gram Positive Bacteremia: Will place on Vancomycin. (4) Leukocytosis Is this a current diagnosis for this admission?: Yes Plan: secondary to Right sided Diverticulitis: Will continue Antibiotic. Will check CT of ABD/Pelvis today. Pt Leukocytosis has not improved. Will continue to monitor. (5) Emesis Is this a current diagnosis for this admission?: Yes Plan: Will continue Zofran. (6) Hypertension Is this a current diagnosis for this admission?: Yes Plan: Will continue to monitor. (7) Diabetes type 2, no ocular involvement Is this a current diagnosis for this admission?: Yes Plan: Hemoglobin A1C of 6.7: Will continue SSI. (8) Abdominal pain Qualifiers: Abdominal location: right upper quadrant Qualified Code(s): R10.11 - Right upper quadrant pain Is this a current diagnosis for this admission?: Yes Plan: Secondary to right-sided diverticulitis with concern for possible abscess formation: Will continue Zosyn. Will check CT of abd/Pelvis today. (9) Fever Qualifiers: Fever type: unspecified Qualified Code(s): R50.9 - Fever, unspecified Is this a current diagnosis for this admission?: Yes Plan: Secondary to acute right-sided diverticulitis: We will monitor fever trend. Patient has order for Tylenol and Percocet 5/325 mg (10) DVT prophylaxis Is this a current diagnosis for this admission?: Yes Plan: SCDs - Time Time Spent with patient: 25-34 minutes
--- NOTE | 2017-11-02 15:24 | RADIOLOGY REPORT (SQ) ---
EXAM DESCRIPTION: CT ABD/PELVIS WITH IV ORAL COMPLETED DATE/TIME: 11/02/2017 2:59 pm REASON FOR STUDY: Concern for abscess. COMPARISON: 10/30/2017. TECHNIQUE: CT scan of the abdomen and pelvis performed with intravenous and oral contrast using heather penelope scanning technique with dynamic intravenous contrast injection. Images reviewed with lung, soft t issue, and bone windows. Reconstructed coronal and sagittal MPR images reviewed. Delayed images for e valuation of the urinary system also acquired. All images stored on PACS. All CT scanners at this facility use dose modulation, iterative reconstruction, and/or weight based d osing when appropriate to reduce radiation dose to as low as reasonably achievable (ALARA). [facility]: Dose Right [facility]: CareDose [facility]: Dose Right [facility]: Teradose 4D [facility]: Fastly CONTRAST TYPE AND DOSE: contrast/concentration: Isovue 370.00 mg/ml; Total Contrast Delivered: 100.0 ml; Total Saline Delivered: 68.3 ml RENAL FUNCTION: BUN 6 creatinine 0.65. RADIATION DOSE: CT Rad equipment meets quality standard of care and radiation dose reduction techniq ues were employed. CTDIvol: 25.6 - 25.8 mGy. DLP: 2961 mGy-cm.. LIMITATIONS: None. FINDINGS: LOWER CHEST: No significant findings. No nodules or infiltrates. LIVER: Normal size. No masses. No dilated ducts. SPLEEN: Normal size. No focal lesions. PANCREAS: No masses. No significant calcifications. No adjacent inflammation or peripancreatic fluid collections. Pancreatic duct not dilated. GALLBLADDER: No identified stones by CT criteria. No inflammatory changes to suggest cholecystitis. ADRENAL GLANDS: No significant masses or asymmetry. RIGHT KIDNEY AND URETER: No solid masses. No significant calcification. No hydronephrosis or hydroure ter. LEFT KIDNEY AND URETER: No solid masses. No significant calcification. No hydronephrosis or hydrouret er. AORTA AND VESSELS: No aneurysm. No dissection. Renal arteries, SMA, celiac without stenosis. RETROPERITONEUM: No retroperitoneal adenopathy, hemorrhage or masses. BOWEL AND PERITONEAL CAVITY: Again seen is prominent bowel wall thickening of the cecum and proximal ascending colon with inflammatory stranding in the pericolonic soft tissues. No fluid collection. N o extraluminal gas. No obstruction. No visualized masses. No free fluid. APPENDIX: Normal. PELVIS: No significant masses. Previously seen left ovarian cyst has decreased significantly in size . Normal bladder. No free fluid. ABDOMINAL WALL: No masses. No hernias. BONES: No significant or acute findings. OTHER: No other significant finding. IMPRESSION: 1. DIVERTICULITIS INVOLVING THE CECUM AND PROXIMAL ASCENDING COLON. LITTLE CHANGE FROM THE PREVIOUS STUDY. NO ABSCESS OR EXTRALUMINAL GAS. 2. NO OTHER SIGNIFICANT OR ACUTE FINDINGS IN THE ABDOMEN OR PELVIS. TECHNICAL DOCUMENTATION: JOB ID: [id number] Quality ID # [id number]: Final reports with documentation of one or more dose reduction techniques (e.g., Au tomated exposure control, adjustment of the mA and/or kV according to patient size, use of iterative reconstruction technique) 2010 [employer]- All Rights Reserved
[2017-11-02] MEDS: VANCOMYCIN HCL 1,500 MG in DEXTROSE 5%-WATER 250 ML IV SCH (18:18)
--- NOTE | 2017-11-02 20:57 | PDOC PROGRESS REPORT ---
Subjective Progress Note for:: 11/02/17 Subjective:: RLQ pain is reducing but still present Reason For Visit: ACUTE RIGHTS SIDED DIVERTICULITIS Physical Exam Vital Signs: Temp Pulse Resp BP Pulse Ox 98.6 F 85 16 136/95 H 97 11/02/17 16:18 11/02/17 16:18 11/02/17 16:18 11/02/17 16:18 11/02/17 16:18 Pulse Oximeter Continuous Start: 10/30/17 18: 38 Freq: RTQ4 Status: Complete Document 10/31/17 06:59 SFL (Rec: 10/31/17 07:00 SFL [email or web address]) Pulse Oximetry Assessment Equipment Usage Equipment Standby Continuous SpO2 Machine # x Additional RT Notes Other patient refused. Intake & Output 11/01/17 11/02/17 11/03/17 06:59 06:59 06:59 Intake Total 1999 1355 900 Output Total 1500 575 Balance 500 780 900 Weight 128.3 kg 128 kg General appearance: PRESENT: no acute distress, well-developed, well-nourished Head exam: PRESENT: atraumatic, normocephalic Eye exam: PRESENT: conjunctiva pink, EOMI, PERRLA. ABSENT: scleral icterus Ear exam: PRESENT: normal external ear exam Neck exam: ABSENT: carotid bruit, JVD, lymphadenopathy, thyromegaly Respiratory exam: PRESENT: clear to auscultation [place]. ABSENT: rales, rhonchi, wheezes Cardiovascular exam: PRESENT: RRR. ABSENT: diastolic murmur, rubs, systolic murmur GI/Abdominal exam: PRESENT: soft, tenderness - tender in RLQ with guarding Neurological exam: PRESENT: alert, awake, oriented to person, oriented to place , oriented to time, oriented to situation, CN II-XII grossly intact. ABSENT: motor sensory deficit Psychiatric exam: PRESENT: appropriate affect, normal mood. ABSENT: homicidal ideation, suicidal ideation Results Laboratory Results: 11/02/17 04:32 11/02/17 04:32 11/02/17 11/02/17 04:32 04:32 WBC 13.6 H RBC 3.47 L Hgb 10.3 L Hct 30.2 L MCV 87 MCH 29.6 MCHC 33.9 RDW 13.2 Plt Count 350 Seg Neutrophils % 72.1 Lymphocytes % 17.0 Monocytes % 10.2 Eosinophils % 0.5 Basophils % 0.2 Absolute Neutrophils 9.8 H Absolute Lymphocytes 2.3 Absolute Monocytes 1.4 Absolute Eosinophils 0.1 Absolute Basophils 0.0 Sodium 139.3 Potassium 3.7 Chloride 104 Carbon Dioxide 25 Anion Gap 10 BUN 6 L Creatinine 0.65 Est GFR ( Amer) > 60 Est GFR (Non-Af Amer) > 60 Glucose 88 Calcium 8.7 Magnesium 1.8 Total Bilirubin 0.5 AST 12 L ALT 16 Alkaline Phosphatase 58 Total Protein 5.4 L Albumin 3.0 L Impressions: Abdomen/Pelvis CT 11/02/17 00:00 IMPRESSION: 1. DIVERTICULITIS INVOLVING THE CECUM AND PROXIMAL ASCENDING COLON. LITTLE CHANGE FROM THE PREVIOUS STUDY. NO ABSCESS OR EXTRALUMINAL GAS. 2. NO OTHER SIGNIFICANT OR ACUTE FINDINGS IN THE ABDOMEN OR PELVIS. Assessment & Plan - Diagnosis (1) Diverticular disease of right side of colon Is this a current diagnosis for this admission?: Yes - Plan Summary Plan Summary: continue NPO IV antibiotics patient improving clinically.
[2017-11-03] MEDS: VANCOMYCIN HCL 1,500 MG in DEXTROSE 5%-WATER 250 ML IV SCH ×3 (03:08→18:14)
[2017-11-03] MEDS: PIPERACILLIN SODIUM/TAZOBACTAM 3.375 GM in NORMAL SALINE 100 ML IV SCH ×4 (03:08→20:42)
[2017-11-03 05:17] LABS: ABSOLUTE EOSINOPHILS # (AUTO) 0.1 10^3/uL (0.0-0.6); ABSOLUTE LYMPHOCYTES (AUTO) 1.9 10^3/uL (0.5-4.7); ABSOLUTE MONOCYTES (AUTO) 1.1 10^3/uL (0.1-1.4); ABSOLUTE NEUT (AUTO) 6.3 10^3/uL (1.7-8.2); BASOPHILS % (AUTO) 0.4 % (0-2); EOSINOPHILS % (AUTO) 1.1 % (0-6); HEMATOCRIT 31.1 % (36.0-47.0); HEMOGLOBIN 10.8 g/dL (12.0-15.5); LYMPHOCYTES % (AUTO) 19.8 % (13-45); MEAN CORPUSCULAR HEMOGLOBIN 30.1 pg (27.0-33.4); MEAN CORPUSCULAR HGB CONC 34.7 g/dL (32.0-36.0); MEAN CORPUSCULAR VOLUME 87 fl (80-97); MONOCYTES % (AUTO) 11.3 % (3-13); PLATELET COUNT 365 10^3/uL (150-450); RED BLOOD COUNT 3.59 10^6/uL (3.72-5.28); RED CELL DISTRIBUTION WIDTH 13.2 % (11.5-14.0); SEGMENTED NEUTROPHILS % (AUTO) 67.4 % (42-78); TOTAL CELLS COUNTED % (AUTO) 100 %; WHITE BLOOD COUNT 9.4 10^3/uL (4.0-10.5)
[2017-11-03 05:39] LABS: ALANINE AMINOTRANSFERASE 27 U/L (9-52); ALBUMIN 3.1 g/dL (3.5-5.0); ALKALINE PHOSPHATASE 62 U/L (38-126); ANION GAP 11 (5-19); ASPARTATE AMINO TRANSFERASE 16 U/L (14-36); BILIRUBIN,DIRECT 0.4 mg/dL (0.0-0.4); BILIRUBIN,TOTAL 0.5 mg/dL (0.2-1.3); BLOOD UREA NITROGEN 6 mg/dL (7-20); CALCIUM 8.8 mg/dL (8.4-10.2); CARBON DIOXIDE 24 mmol/L (22-30); CHLORIDE 105 mmol/L (98-107); GLUCOSE 87 mg/dL (75-110); MAGNESIUM 1.8 mg/dL (1.6-2.3); POTASSIUM 3.8 mmol/L (3.6-5.0); SODIUM 140.1 mmol/L (137-145); TOTAL PROTEIN 5.8 g/dL (6.3-8.2)
[2017-11-03] MEDS: LANSOPRAZOLE 30 MG TAB.RAP.DR PO SCH (06:06)
--- NOTE | 2017-11-03 18:37 | PDOC PROGRESS REPORT ---
Subjective Progress Note for:: 11/03/17 Subjective:: Patient states she is feeling a lot better Abdominal pain is almost resolved She is tolerating full liquids Reason For Visit: ACUTE RIGHTS SIDED DIVERTICULITIS Physical Exam Vital Signs: Temp Pulse Resp BP Pulse Ox 98.8 F 77 16 130/73 H 99 11/03/17 15:31 11/03/17 15:31 11/03/17 15:31 11/03/17 15:31 11/03/17 15:31 Pulse Oximeter Continuous Start: 10/30/17 18: 38 Freq: RTQ4 Status: Complete Document 10/31/17 06:59 SFL (Rec: 10/31/17 07:00 SFL [email or web address]) Pulse Oximetry Assessment Equipment Usage Equipment Standby Continuous SpO2 Machine # x Additional RT Notes Other patient refused. Intake & Output 11/02/17 11/03/17 11/04/17 00:59 00:59 00:59 Intake Total 615 2140 3434 Output Total 448 968 7569 Balance 40 1840 2434 Weight 128.3 kg 128 kg 128.2 kg General appearance: PRESENT: no acute distress, well-developed, well-nourished Head exam: PRESENT: atraumatic, normocephalic Eye exam: PRESENT: conjunctiva pink, EOMI. ABSENT: scleral icterus Ear exam: PRESENT: normal external ear exam Mouth exam: PRESENT: moist, tongue midline Neck exam: ABSENT: carotid bruit, JVD, lymphadenopathy, thyromegaly Respiratory exam: PRESENT: clear to auscultation [place]. ABSENT: rales, rhonchi, wheezes Cardiovascular exam: PRESENT: RRR. ABSENT: diastolic murmur, rubs, systolic murmur Pulses: PRESENT: normal dorsalis pedis pul Vascular exam: PRESENT: normal capillary refill GI/Abdominal exam: PRESENT: normal bowel sounds, tenderness, other - obese. ABSENT: distended, guarding, mass, organolmegaly, rebound Rectal exam: PRESENT: deferred Extremities exam: PRESENT: full ROM. ABSENT: calf tenderness, clubbing, pedal edema Results Laboratory Results: 11/03/17 04:05 11/03/17 04:05 11/03/17 11/03/17 04:05 04:05 WBC 9.4 RBC 3.59 L Hgb 10.8 L Hct 31.1 L MCV 87 MCH 30.1 MCHC 34.7 RDW 13.2 Plt Count 365 Seg Neutrophils % 67.4 Lymphocytes % 19.8 Monocytes % 11.3 Eosinophils % 1.1 Basophils % 0.4 Absolute Neutrophils 6.3 Absolute Lymphocytes 1.9 Absolute Monocytes 1.1 Absolute Eosinophils 0.1 Absolute Basophils 0.0 Sodium 140.1 Potassium 3.8 Chloride 105 Carbon Dioxide 24 Anion Gap 11 BUN 6 L Creatinine 0.66 Est GFR ( Amer) > 60 Est GFR (Non-Af Amer) > 60 Glucose 87 Calcium 8.8 Magnesium 1.8 Total Bilirubin 0.5 AST 16 ALT 27 Alkaline Phosphatase 62 Total Protein 5.8 L Albumin 3.1 L Impressions: Abdomen/Pelvis CT 11/02/17 00:00 IMPRESSION: 1. DIVERTICULITIS INVOLVING THE CECUM AND PROXIMAL ASCENDING COLON. LITTLE CHANGE FROM THE PREVIOUS STUDY. NO ABSCESS OR EXTRALUMINAL GAS. 2. NO OTHER SIGNIFICANT OR ACUTE FINDINGS IN THE ABDOMEN OR PELVIS. Assessment & Plan - Diagnosis (1) Bacteremia Is this a current diagnosis for this admission?: Yes Plan: One blood culture drawn was positive for gram-positive cocci Identification and sensitivity are pending All other cultures were negative ; likely is a contaminant Await results (2) DVT prophylaxis Is this a current diagnosis for this admission?: Yes (3) Diabetes type 2, no ocular involvement Is this a current diagnosis for this admission?: Yes Plan: Well-controlled continue present management (4) Diverticulitis Is this a current diagnosis for this admission?: Yes Plan: Continue Zosyn ; improvement of patient's symptoms Diet may be increased tomorrow as per surgery - Time Time Spent with patient: Patient may be discharged in 24-48 hours on p.o. antibiotics if blood culture reports a contaminant Time Spent with patient: 15-24 minutes
[2017-11-03 18:46] LABS: VANCOMYCIN,TROUGH 16.4 ug/mL (5.0-20.0)
[2017-11-03] MEDS: HYDROMORPHONE HCL INJ/PF 2 MG/ML AMPULE IV PRN (20:42)
[2017-11-03] MEDS: ONDANSETRON HCL INJ/PF 4 MG/2 ML SDV IV PRN (20:47)
[2017-11-04] MEDS: RINGERS SOLUTION,LACTATED 1,000 ML IV PRN (02:39)
[2017-11-04] MEDS: PIPERACILLIN SODIUM/TAZOBACTAM 3.375 GM in NORMAL SALINE 100 ML IV SCH ×2 (02:39→08:08)
[2017-11-04] MEDS: VANCOMYCIN HCL 1,500 MG in DEXTROSE 5%-WATER 250 ML IV SCH ×2 (02:39→10:10)
[2017-11-04] MEDS: LANSOPRAZOLE 30 MG TAB.RAP.DR PO SCH (05:31)
[2017-11-04] MEDS: ONDANSETRON HCL INJ/PF 4 MG/2 ML SDV IV PRN (08:08)
[2017-11-04] MEDS: METRONIDAZOLE 500 MG TABLET PO SCH ×2 (13:53→22:18)
--- NOTE | 2017-11-04 15:14 | PDOC PROGRESS REPORT ---
Subjective Progress Note for:: 11/04/17 Subjective:: Patient is seen on rounds. She is resting comfortably in bed. She denies any nausea, vomiting or abdominal pain. She states she did have some nausea earlier this morning.. She got Zofran and this helped. Denies any fevers or chills. She denies diarrhea. She states her stools are somewhat loose though. Right lower quadrant abdominal pain is improved. She denies any shortness of breath or chest pain. She denies any significant myalgias or arthralgias. Remaining review of systems are negative Reason For Visit: ACUTE RIGHTS SIDED DIVERTICULITIS Physical Exam Vital Signs: Temp Pulse Resp BP Pulse Ox 98.6 F 77 16 131/57 H 100 11/04/17 11:30 11/04/17 11:30 11/04/17 11:30 11/04/17 11:30 11/04/17 11:30 Pulse Oximeter Continuous Start: 10/30/17 18: 38 Freq: RTQ4 Status: Complete Document 10/31/17 06:59 SFL (Rec: 10/31/17 07:00 SFL [email or web address]) Pulse Oximetry Assessment Equipment Usage Equipment Standby Continuous SpO2 Machine # x Additional RT Notes Other patient refused. Intake & Output 11/03/17 11/04/17 11/05/17 06:59 06:59 06:59 Intake Total 2340 3574 Output Total 300 1300 Balance 2040 2274 Weight 128.2 kg 128.2 kg 128.2 kg General appearance: PRESENT: no acute distress, morbidly obese, well-developed, well-nourished Head exam: PRESENT: atraumatic, normocephalic Eye exam: PRESENT: conjunctiva pink, EOMI, PERRLA. ABSENT: scleral icterus Ear exam: PRESENT: normal external ear exam Mouth exam: PRESENT: moist, tongue midline Neck exam: ABSENT: carotid bruit, JVD, lymphadenopathy, thyromegaly Respiratory exam: PRESENT: clear to auscultation [place]. ABSENT: rales, rhonchi, wheezes Cardiovascular exam: PRESENT: RRR. ABSENT: diastolic murmur, rubs, systolic murmur Pulses: PRESENT: normal dorsalis pedis pul Vascular exam: PRESENT: normal capillary refill GI/Abdominal exam: PRESENT: hyperactive bowel sounds, soft, tenderness - Right lower quadrant, no rebound peritoneal signs are negative Rectal exam: PRESENT: deferred Extremities exam: PRESENT: full ROM. ABSENT: calf tenderness, clubbing, pedal edema Musculoskeletal exam: PRESENT: ambulatory, full ROM, normal inspection Neurological exam: PRESENT: alert, awake, oriented to person, oriented to place , oriented to time, oriented to situation, CN II-XII grossly intact. ABSENT: motor sensory deficit Psychiatric exam: PRESENT: appropriate affect, normal mood. ABSENT: homicidal ideation, suicidal ideation Skin exam: PRESENT: dry, intact, warm. ABSENT: cyanosis, rash Results Laboratory Results: 11/03/17 04:05 11/03/17 04:05 Impressions: Abdomen/Pelvis CT 11/02/17 00:00 IMPRESSION: 1. DIVERTICULITIS INVOLVING THE CECUM AND PROXIMAL ASCENDING COLON. LITTLE CHANGE FROM THE PREVIOUS STUDY. NO ABSCESS OR EXTRALUMINAL GAS. 2. NO OTHER SIGNIFICANT OR ACUTE FINDINGS IN THE ABDOMEN OR PELVIS. Assessment & Plan - Diagnosis (1) Diverticulitis Is this a current diagnosis for this admission?: Yes Plan: Improving she has had 5 days of IV antibiotics. We will transition to oral Cipro and Flagyl. Oral as needed pain medication. Can advance diet to regular. She will need a colonoscopy to follow-up after 6 weeks. (2) Abdominal pain Qualifiers: Abdominal location: right upper quadrant Qualified Code(s): R10.11 - Right upper quadrant pain Is this a current diagnosis for this admission?: Yes Plan: Pain is improving. We will add oral oxycodone as needed (3) Bacteremia Is this a current diagnosis for this admission?: Yes Plan: Last full blood cultures were negative. Likely staph epidermidis was a contaminant. She has been treated with IV antibiotics for 5 days per (4) Diabetes type 2, no ocular involvement Is this a current diagnosis for this admission?: Yes Plan: Continue current medication and sliding scale coverage (5) Diverticular disease of right side of colon Is this a current diagnosis for this admission?: Yes Plan: As above (6) Emesis Qualifiers: Nausea presence: with nausea Is this a current diagnosis for this admission?: Yes Plan: Resolved. (7) Fever Qualifiers: Fever type: unspecified Qualified Code(s): R50.9 - Fever, unspecified Is this a current diagnosis for this admission?: Yes Plan: Resolved (8) Hypertension Is this a current diagnosis for this admission?: Yes Plan: She is normotensive at the present time continue current medication (9) Leukocytosis Is this a current diagnosis for this admission?: Yes Plan: Resolved. (10) Sepsis Is this a current diagnosis for this admission?: Yes - Time Time Spent with patient: 25-34 minutes Medications reviewed and adjusted accordingly: Yes Anticipated discharge: Home Within: within 48 hours
[2017-11-04] MEDS: HYDROMORPHONE HCL INJ/PF 2 MG/ML AMPULE IV PRN (16:13)
--- NOTE | 2017-11-04 21:59 | PDOC PROGRESS REPORT ---
Subjective Progress Note for:: 11/04/17 Subjective:: No more pain Tolerating a regular diet No fever. Reason For Visit: ACUTE RIGHTS SIDED DIVERTICULITIS Physical Exam Vital Signs: Temp Pulse Resp BP Pulse Ox 99.0 F 78 16 119/68 98 11/04/17 15:50 11/04/17 15:50 11/04/17 15:50 11/04/17 15:50 11/04/17 15:50 Pulse Oximeter Continuous Start: 10/30/17 18: 38 Freq: RTQ4 Status: Complete Document 10/31/17 06:59 SFL (Rec: 10/31/17 07:00 SFL [email or web address]) Pulse Oximetry Assessment Equipment Usage Equipment Standby Continuous SpO2 Machine # x Additional RT Notes Other patient refused. Intake & Output 11/03/17 11/04/17 11/05/17 06:59 06:59 06:59 Intake Total 2340 3574 2350 Output Total 300 1300 Balance 2040 2274 2350 Weight 128.2 kg 128.2 kg 128.2 kg General appearance: PRESENT: no acute distress Respiratory exam: PRESENT: clear to auscultation [place]. ABSENT: rales, rhonchi, wheezes Cardiovascular exam: PRESENT: RRR. ABSENT: diastolic murmur, rubs, systolic murmur GI/Abdominal exam: PRESENT: normal bowel sounds, soft. ABSENT: distended, guarding, mass, organolmegaly, rebound, tenderness Neurological exam: PRESENT: alert, awake, oriented to person, oriented to place , oriented to time, oriented to situation, CN II-XII grossly intact. ABSENT: motor sensory deficit Results Laboratory Results: 11/03/17 04:05 11/03/17 04:05 10/30/17 16:45 Blood Blood Culture - Final NO GROWTH IN 5 DAYS Impressions: Abdomen/Pelvis CT 11/02/17 00:00 IMPRESSION: 1. DIVERTICULITIS INVOLVING THE CECUM AND PROXIMAL ASCENDING COLON. LITTLE CHANGE FROM THE PREVIOUS STUDY. NO ABSCESS OR EXTRALUMINAL GAS. 2. NO OTHER SIGNIFICANT OR ACUTE FINDINGS IN THE ABDOMEN OR PELVIS. Assessment & Plan - Diagnosis (1) Diverticular disease of right side of colon Is this a current diagnosis for this admission?: Yes - Plan Summary Plan Summary: patient is doing well with resolving diverticulitis. Surgery will sign off for now. On discharge patient will need to be set up for a colonoscopy in 6 weeks.
[2017-11-04] MEDS: CIPROFLOXACIN HCL 500 MG TABLET PO SCH (22:18)
[2017-11-04] MEDS: ACETAMINOPHEN 325 MG TABLET PO PRN (23:43)
[2017-11-05 05:30] LABS: ABSOLUTE BASOPHILS # (AUTO) 0.1 10^3/uL (0.0-0.2); ABSOLUTE EOSINOPHILS # (AUTO) 0.1 10^3/uL (0.0-0.6); ABSOLUTE LYMPHOCYTES (AUTO) 1.7 10^3/uL (0.5-4.7); ABSOLUTE MONOCYTES (AUTO) 1.3 10^3/uL (0.1-1.4); BASOPHILS % (AUTO) 0.5 % (0-2); EOSINOPHILS % (AUTO) 1.2 % (0-6); HEMATOCRIT 30.6 % (36.0-47.0); HEMOGLOBIN 10.5 g/dL (12.0-15.5); LYMPHOCYTES % (AUTO) 14.9 % (13-45); MEAN CORPUSCULAR HEMOGLOBIN 29.8 pg (27.0-33.4); MEAN CORPUSCULAR HGB CONC 34.4 g/dL (32.0-36.0); MEAN CORPUSCULAR VOLUME 87 fl (80-97); MONOCYTES % (AUTO) 11.3 % (3-13); PLATELET COUNT 442 10^3/uL (150-450); RED BLOOD COUNT 3.53 10^6/uL (3.72-5.28); RED CELL DISTRIBUTION WIDTH 13.3 % (11.5-14.0); SEGMENTED NEUTROPHILS % (AUTO) 72.1 % (42-78); TOTAL CELLS COUNTED % (AUTO) 100 %; WHITE BLOOD COUNT 11.2 10^3/uL (4.0-10.5)
[2017-11-05 05:44] LABS: ANION GAP 11 (5-19); BLOOD UREA NITROGEN 9 mg/dL (7-20); CALCIUM 9.2 mg/dL (8.4-10.2); CARBON DIOXIDE 26 mmol/L (22-30); CHLORIDE 105 mmol/L (98-107); GLUCOSE 107 mg/dL (75-110); POTASSIUM 3.8 mmol/L (3.6-5.0); SODIUM 141.7 mmol/L (137-145)
[2017-11-05] MEDS: LANSOPRAZOLE 30 MG TAB.RAP.DR PO SCH (06:39)
[2017-11-05] MEDS: METRONIDAZOLE 500 MG TABLET PO SCH ×2 (06:39→15:47)
[2017-11-05] MEDS ORDERED: NORMAL SALINE 1000 ML 1,000 ML IV PRN (08:14)
[2017-11-05] MEDS: CIPROFLOXACIN HCL 500 MG TABLET PO SCH (10:25)
--- NOTE | 2017-11-05 10:43 | PDOC PROGRESS REPORT ---
Subjective Progress Note for:: 11/05/17 Subjective:: Feels okay. Still with some right-sided abdominal pain but improved. Reason For Visit: ACUTE RIGHTS SIDED DIVERTICULITIS Physical Exam Vital Signs: Temp Pulse Resp BP Pulse Ox 99.3 F 52 L 12 117/64 99 11/05/17 07:52 11/05/17 07:52 11/05/17 07:52 11/05/17 07:52 11/05/17 07:52 Pulse Oximeter Continuous Start: 10/30/17 18: 38 Freq: RTQ4 Status: Complete Document 10/31/17 06:59 SFL (Rec: 10/31/17 07:00 SFL [email or web address]) Pulse Oximetry Assessment Equipment Usage Equipment Standby Continuous SpO2 Machine # x Additional RT Notes Other patient refused. Intake & Output 11/04/17 11/05/17 11/06/17 06:59 06:59 06:59 Intake Total 3574 2350 Output Total 1300 Balance 2274 2350 Weight 128.2 kg 128.2 kg General appearance: PRESENT: no acute distress, cooperative Respiratory exam: PRESENT: clear to auscultation [place] Cardiovascular exam: PRESENT: RRR GI/Abdominal exam: PRESENT: other - Soft, nondistended, mild tenderness in the right abdomen with no peritoneal signs Results Laboratory Results: 11/05/17 04:11 11/05/17 04:11 11/05/17 11/05/17 04:11 04:11 WBC 11.2 H RBC 3.53 L Hgb 10.5 L Hct 30.6 L MCV 87 MCH 29.8 MCHC 34.4 RDW 13.3 Plt Count 442 Seg Neutrophils % 72.1 Lymphocytes % 14.9 Monocytes % 11.3 Eosinophils % 1.2 Basophils % 0.5 Absolute Neutrophils 8.0 Absolute Lymphocytes 1.7 Absolute Monocytes 1.3 Absolute Eosinophils 0.1 Absolute Basophils 0.1 Sodium 141.7 Potassium 3.8 Chloride 105 Carbon Dioxide 26 Anion Gap 11 BUN 9 Creatinine 1.37 H Est GFR ( Amer) 53 L Est GFR (Non-Af Amer) 44 L Glucose 107 Calcium 9.2 10/30/17 16:45 Blood Blood Culture - Final NO GROWTH IN 5 DAYS Impressions: Abdomen/Pelvis CT 11/02/17 00:00 IMPRESSION: 1. DIVERTICULITIS INVOLVING THE CECUM AND PROXIMAL ASCENDING COLON. LITTLE CHANGE FROM THE PREVIOUS STUDY. NO ABSCESS OR EXTRALUMINAL GAS. 2. NO OTHER SIGNIFICANT OR ACUTE FINDINGS IN THE ABDOMEN OR PELVIS. Assessment & Plan - Diagnosis (1) Diverticulitis Is this a current diagnosis for this admission?: Yes Plan: Responding well with antibiotics. May discharge patient home on Levaquin and Flagyl and Colace for 10 days. Follow-up with [facility] in a couple weeks.
[2017-11-05] MEDS ORDERED: ONDANSETRON HCL INJ/PF 4 MG/2 ML SDV IV PRN (15:30)
[2017-11-05] MEDS ORDERED: HYDROMORPHONE HCL INJ/PF 2 MG/ML AMPULE IV PRN (15:30)
[2017-11-05] MEDS ORDERED: ACETAMINOPHEN 325 MG TABLET PO PRN (15:30)
[2017-11-05] MEDS ORDERED: OXYCODONE-ACETAMINOPHEN 5-325 MG TABLET PO PRN (15:30)
[2017-11-05 17:01] VITALS: BP 142/92
[2017-11-05] MEDS ORDERED: INFLUENZA ADLT QUAD (36MOS+) 2017-18 VAC 0.5 ML SYR IM PRN (17:05)
--- NOTE | 2017-11-05 17:51 | PDOC DISCHARGE SUMMARY ---
General - Admit/Disc Date/PCP Admission Date/Primary Care Provider: 10/30/17 16:35 General surgeon: Dr. Ram Discharge Date: 11/05/17 - Discharge Diagnosis (1) Diverticulitis Is this a current diagnosis for this admission?: Yes Summary: She will complete a course of p.o. Levaquin until and Flagyl as recommended by general surgery. She will follow-up with at their clinic in 2 weeks (2) Abdominal pain Is this a current diagnosis for this admission?: Yes Summary: Secondary to diverticulitis. Improving. She will be given a short course of pain medication at discharge. (3) Bacteremia Is this a current diagnosis for this admission?: Yes Summary: Ruled out. This was not a true bacteremia. This was a skin contaminant. No further workup (4) Diabetes type 2, no ocular involvement Is this a current diagnosis for this admission?: Yes Summary: Resume home regimen (5) Emesis Is this a current diagnosis for this admission?: Yes Summary: Secondary to diverticulitis. Improving. I will give her some Zofran at discharge. (6) Hypertension Is this a current diagnosis for this admission?: Yes Summary: Stable (7) Sepsis Is this a current diagnosis for this admission?: Yes Summary: Ruled out. I do not believe she had sepsis at the time of admission (8) Anemia Is this a current diagnosis for this admission?: Yes Summary: Likely multifactorial. Further workup can be obtained as an outpatient. She did have a precipitous drop in hemoglobin likely due to hemodilution. - Additional Information Resuscitation Status: Full Code Discharge Diet: Regular Discharge Activity: Activity As Tolerated, Balance Activity w/Rest, Slowly Increase Activity Prescriptions: Ondansetron [Zofran Odt 4 mg Tablet] 4 mg PO Q4HP PRN #30 tab.rapdis PRN Reason: Oxycodone HCl/Acetaminophen [Percocet 5-325 mg Tablet] 1 tab PO Q6HP PRN #30 tablet PRN Reason: Levofloxacin [Levaquin 750 mg Tablet] 750 mg PO DAILY #10 tab Metronidazole [Flagyl 500 mg Tablet] 500 mg PO Q8 #30 tablet Home Medications: Cholecalciferol (Vitamin D3) [Vitamin D3] 1,000 unit PO DAILY 10/30/17 Lisinopril [Zestril] 5 mg PO DAILY 10/30/17 Metformin HCl [Glucophage 500 mg Tablet] 500 mg PO DAILY 10/30/17 Multivitamin [Multiple Vitamins] 1 tab PO DAILY 10/30/17 Levofloxacin [Levaquin 750 mg Tablet] 750 mg PO DAILY #10 tab 11/05/17 Metronidazole [Flagyl 500 mg Tablet] 500 mg PO Q8 #30 tablet 11/05/17 Ondansetron [Zofran Odt 4 mg Tablet] 4 mg PO Q4HP PRN #30 tab.rapdis 11/05/17 Oxycodone HCl/Acetaminophen [Percocet 5-325 mg Tablet] 1 tab PO Q6HP PRN #30 tablet 11/05/17 History of Present Illness History of Present Illness: LING GOLDSTEIN is a 37 year old female who presented to the emergency room with abdominal pain Hospital Course Hospital Course: The patient is a very pleasant 37-year-old -Thai female who presented to the emergency room with complaints of right-sided abdominal pain. In the emergency room she had a CT scan of the abdomen and pelvis which revealed right-sided diverticulitis. No evidence of abscess or free air. She was admitted to the hospital. The general surgery consult service was consulted and they followed along during this hospitalization. She was started on IV Cipro and Flagyl. Over the next several days the patient slowly improved. Her diet was slowly advanced and on the day of discharge is tolerating a regular diet. General surgery saw the patient on the day of discharge and believe she is stable. I am going to transition her to p.o. Levaquin as well as Flagyl at the time of discharge at their recommendations. She will follow-up at their clinic in 2 weeks. At this point maximum hospital benefits been reached. She will be discharged home today in stable condition. Physical Exam Vital Signs: Temp Pulse Resp BP Pulse Ox 99.0 F 66 16 132/77 H 98 11/05/17 16:45 11/05/17 16:45 11/05/17 16:45 11/05/17 16:45 11/05/17 16:45 Pulse Oximeter Continuous Start: 10/30/17 18: 38 Freq: RTQ4 Status: Complete Document 10/31/17 06:59 SFL (Rec: 10/31/17 07:00 SFL [email or web address]) Pulse Oximetry Assessment Equipment Usage Equipment Standby Continuous SpO2 Machine # x Additional RT Notes Other patient refused. Intake & Output 11/04/17 11/05/17 11/06/17 06:59 06:59 06:59 Intake Total 3574 2350 594 Output Total 1300 Balance 2274 2350 594 Weight 128.2 kg 128.2 kg General appearance: PRESENT: no acute distress, well-developed, well-nourished Head exam: PRESENT: atraumatic, normocephalic Mouth exam: PRESENT: moist, tongue midline Respiratory exam: PRESENT: clear to auscultation [place]. ABSENT: rales, rhonchi, wheezes Cardiovascular exam: PRESENT: RRR. ABSENT: diastolic murmur, rubs, systolic murmur GI/Abdominal exam: PRESENT: normal bowel sounds, soft. ABSENT: distended, guarding, mass, organolmegaly, rebound, tenderness Extremities exam: PRESENT: full ROM. ABSENT: calf tenderness, clubbing, pedal edema Neurological exam: PRESENT: alert, awake, oriented to person, oriented to place , oriented to time, oriented to situation, CN II-XII grossly intact. ABSENT: motor sensory deficit Psychiatric exam: PRESENT: appropriate affect, normal mood. ABSENT: homicidal ideation, suicidal ideation Skin exam: PRESENT: dry, intact, warm. ABSENT: cyanosis, rash Results Laboratory Results: 11/05/17 04:11 11/05/17 04:11 11/05/17 11/05/17 04:11 04:11 WBC 11.2 H RBC 3.53 L Hgb 10.5 L Hct 30.6 L MCV 87 MCH 29.8 MCHC 34.4 RDW 13.3 Plt Count 442 Seg Neutrophils % 72.1 Lymphocytes % 14.9 Monocytes % 11.3 Eosinophils % 1.2 Basophils % 0.5 Absolute Neutrophils 8.0 Absolute Lymphocytes 1.7 Absolute Monocytes 1.3 Absolute Eosinophils 0.1 Absolute Basophils 0.1 Sodium 141.7 Potassium 3.8 Chloride 105 Carbon Dioxide 26 Anion Gap 11 BUN 9 Creatinine 1.37 H Est GFR ( Amer) 53 L Est GFR (Non-Af Amer) 44 L Glucose 107 Calcium 9.2 10/30/17 16:45 Blood Blood Culture - Final NO GROWTH IN 5 DAYS Impressions: Abdomen/Pelvis CT 11/02/17 00:00 IMPRESSION: 1. DIVERTICULITIS INVOLVING THE CECUM AND PROXIMAL ASCENDING COLON. LITTLE CHANGE FROM THE PREVIOUS STUDY. NO ABSCESS OR EXTRALUMINAL GAS. 2. NO OTHER SIGNIFICANT OR ACUTE FINDINGS IN THE ABDOMEN OR PELVIS. Qualifiers PATEINT BEING DISCHARGED WITH ANY OF THE FOLLOWING DIAGNOSIS?: No Plan Time Spent: Greater than 30 Minutes
[2017-11-06] MEDS ORDERED: LANSOPRAZOLE 30 MG TAB.RAP.DR PO SCH (06:00)
== END 2017-11-05 17:00 | disposition home or self-care (01) | DRG 392 ==
LOC: ER 10:59 → EH 16:35 → 4S 10-31 00:24 → 4N 11-02 01:58
PROVIDERS: ADMIT Emergency Medicine; ATTEND Emergency Medicine
PROC: 3E0234Z Introduction of Serum, Toxoid and Vaccine into Muscle, Percutaneous Approach (ICD-10-PCS; principal; 2017-11-05)
DX: K57.32 Diverticulitis of large intestine without perforation or abscess without bleeding (principal); E11.9 Type 2 diabetes mellitus without complications; R11.10 Vomiting, unspecified; I10 Essential (primary) hypertension; D64.9 Anemia, unspecified; Z23 Encounter for immunization; Z79.899 Other long term (current) drug therapy; Z60.2 Problems related to living alone; Z82.61 Family history of arthritis; Z83.3 Family history of diabetes mellitus; Z84.89 Family history of other specified conditions
CPT/HCPCS: 36415; 74177; 80048; 80053; 80202; 81001; 82962; 83036; 83605; 83690; 83735; 85025; 87040; 87077; 87086; 90686; 96361; 96365; 96375; 99285; J0696; J0744; J1170; J2405; J2543; J3370; J7030; J7060; J7120

== ENCOUNTER 2018-10-11 09:25 | Day surgery (SDC) | payer SELFPAY ==
[~2018-10-11 09:25] MED LIST: PROPOFOL INJ 200 MG/20 ML VIAL IV ONE
[2018-10-11] MEDS ORDERED: PROPOFOL INJ 200 MG/20 ML VIAL IV ONE (11:16)
--- NOTE | 2018-10-11 13:08 | Operative Report ---
Operative Report DATE OF SURGERY: 10/11/18 Operative Report: The risks, benefits and alternatives of the procedure including the risks of bleeding, perforation requiring surgery have been explained to the patient in detail and informed consent had been obtained. The patient is brought back to the endoscopy suite and placed in the left, lateral decubital position. Timeout was done. Rectal examination is done which did not reveal any masses, tears or fissures. An Olympus videoscope was introduced into the patient's rectum. The scope was then carefully advanced all the way to the cecum. Cecum was identified by the usual anatomical landmarks including the ileocecal valve as well as the appendiceal office. Photodocumentation is obtained. The scope was then sequentially pulled back via the various segments of the colon including the ascending colon, hepatic flexure, transverse colon, splenic flexure, desc ending colon and finally into the rectosigmoid portions of the colon. Retroflexion maneuver was performed. PREOPERATIVE DIAGNOSIS: Right lower quadrant pain POSTOPERATIVE DIAGNOSIS: Internal hemorrhoids. Right-sided diverticulosis without any evidence of diverticulitis. Mild inflammation status post biopsy rule out lymphocytic, microscopic, collagenous colitis OPERATION: Colonoscopy with biopsy SURGEON: CHRISTA BAIN ANESTHESIA: LMAC TISSUE REMOVED OR ALTERED: As noted above. COMPLICATIONS: None. ESTIMATED BLOOD LOSS: None. INTRAOPERATIVE FINDINGS: As noted above. PROCEDURE: Patient tolerated the procedure well. No immediate postprocedure complications are noted. Patient discharged in good condition. Discharge date 10/11/2018. Discharge diet: Regular. Discharge activity: Regular. 2-3-week follow-up to discuss findings. Patient is instructed to call the office or proceed to the emergency room should there be any further proximal questions. Jerry on the pathology.
[2018-10-11 13:38] VITALS: BP 112/61
== END 2018-10-11 11:25 | disposition home or self-care (01) ==
LOC: END 09:25
PROVIDERS: ATTEND Internal Medicine Gastroenterology
DX: K64.8 Other hemorrhoids (principal); K57.30 Diverticulosis of large intestine without perforation or abscess without bleeding; K52.9 Noninfective gastroenteritis and colitis, unspecified; I10 Essential (primary) hypertension; E11.9 Type 2 diabetes mellitus without complications; E66.9 Obesity, unspecified; Z68.41 Body mass index [BMI] 40.0-44.9, adult; Z79.899 Other long term (current) drug therapy; Z79.84 Long term (current) use of oral hypoglycemic drugs
CPT/HCPCS: 45380; 82962; 88305 ×2; J2704

== ENCOUNTER 2018-12-27 20:38 | Emergency (ER) | payer SELFPAY ==
[2018-12-27] MEDS ORDERED: KETOROLAC TROMETHAMINE 60 MG/2 ML SDV IM ONE (21:02)
--- NOTE | 2018-12-27 21:03 | ER Document Report ---
ED Medical Screen (RME) - General Chief Complaint: Constipation Stated Complaint: NO BOWEL MOVEMENT,RIHGT SIDE PAIN Time Seen by Provider: 12/27/18 21:01 Mode of Arrival: Ambulatory Information source: Patient Notes: Patient is a 38-year-old female who presents to the emergency department with chief complaint of right flank pain with radiation into her buttocks and right anterior thigh. She has also had no bowel movement in 4 days. She does report a history of diverticulitis. She denies any nausea, vomiting, diarrhea or fevers. She states today she took 2 Dulcolax tablets and also took milk of magnesia and still has not had a bowel movement. She states she feels significant pressure near the rectum. Exam: Patient alert, oriented with moderate distress noted. Abdominal exam deferred due to location of assessment in triage. I have greeted and performed a rapid initial assessment of this patient. A comprehensive ED assessment and evaluation of the patient, analysis of test r esults and completion of the medical decision making process will be conducted by additional ED providers. Dictation of this chart was performed using voice recognition software; therefore, there may be some unintended grammatical errors. TRAVEL OUTSIDE OF THE [place] IN LAST 30 DAYS: No - Related Data Allergies/Adverse Reactions: No Known Allergies Allergy (Verified 10/11/18 10:07) Past Medical History - Past Medical History Cardiac Medical History: Reports: Hx Hypertension Denies: Hx Coronary Artery Disease, Hx Heart Attack Pulmonary Medical History: Denies: Hx Asthma, Hx Bronchitis, Hx COPD, Hx Pneumonia Neurological Medical History: Denies: Hx Cerebrovascular Accident, Hx Seizures Endocrine Medical History: Reports: Hx Diabetes Mellitus Type 2 Renal/ Medical History: Denies: Hx Peritoneal Dialysis Musculoskeltal Medical History: Denies Hx Arthritis - Immunizations Hx Diphtheria, Pertussis, Tetanus Vaccination: No History of Influenza Vaccine for 06/2017 - 11/2017 Season: No Influenza Administration Date for 06/2017 - 11/2017 Season: 06/26/18 Physical Exam - Vital signs Vitals: Temp Pulse Resp BP Pulse Ox 98.6 F 110 H 16 135/93 H 99 12/27/18 20:44 12/27/18 20:44 12/27/18 20:44 12/27/18 20:44 12/27/18 20:44 Course - Vital Signs Vital signs: Temp Pulse Resp BP Pulse Ox 98.6 F 110 H 16 135/93 H 99 12/27/18 20:44 12/27/18 20:44 12/27/18 20:44 12/27/18 20:44 12/27/18 20:44
[2018-12-27 21:45] LABS: ABSOLUTE EOSINOPHILS # (AUTO) 0.3 10^3/uL (0.0-0.6); ABSOLUTE LYMPHOCYTES (AUTO) 2.9 10^3/uL (0.5-4.7); ABSOLUTE MONOCYTES (AUTO) 0.7 10^3/uL (0.1-1.4); ABSOLUTE NEUT (AUTO) 5.7 10^3/uL (1.7-8.2); BASOPHILS % (AUTO) 0.4 % (0-2); EOSINOPHILS % (AUTO) 2.7 % (0-6); HEMATOCRIT 38.5 % (36.0-47.0); HEMOGLOBIN 13.4 g/dL (12.0-15.5); MEAN CORPUSCULAR HEMOGLOBIN 30.6 pg (27.0-33.4); MEAN CORPUSCULAR HGB CONC 34.7 g/dL (32.0-36.0); MEAN CORPUSCULAR VOLUME 88 fl (80-97); MONOCYTES % (AUTO) 7.6 % (3-13); PLATELET COUNT 430 10^3/uL (150-450); RED BLOOD COUNT 4.37 10^6/uL (3.72-5.28); RED CELL DISTRIBUTION WIDTH 13.1 % (11.5-14.0); SEGMENTED NEUTROPHILS % (AUTO) 59.3 % (42-78); TOTAL CELLS COUNTED % (AUTO) 100 %; WHITE BLOOD COUNT 9.7 10^3/uL (4.0-10.5)
[2018-12-27 21:58] LABS: APPEARANCE,URINE SLIGHTLY-CLOUDY; BILIRUBIN,URINE NEGATIVE (NEGATIVE); COLOR,URINE YELLOW; GLUCOSE, URINE NEGATIVE (NEGATIVE); KETONES,URINE NEGATIVE (NEGATIVE); LEUKOCYTE ESTERASE,URINE NEGATIVE (NEGATIVE); NITRITE,URINE NEGATIVE (NEGATIVE); PROTEIN,URINE NEGATIVE (NEGATIVE); URINE SPECIFIC GRAVITY 1.016; UROBILINOGEN,URINE NEGATIVE mg/dL (<2.0)
[2018-12-27 22:14] LABS: ALANINE AMINOTRANSFERASE 26 U/L (9-52); ALBUMIN 4.2 g/dL (3.5-5.0); ALKALINE PHOSPHATASE 77 U/L (38-126); ANION GAP 9 (5-19); ASPARTATE AMINO TRANSFERASE 17 U/L (14-36); BILIRUBIN,DIRECT 0.3 mg/dL (0.0-0.4); BILIRUBIN,TOTAL 0.3 mg/dL (0.2-1.3); BLOOD UREA NITROGEN 13 mg/dL (7-20); CALCIUM 9.8 mg/dL (8.4-10.2); CARBON DIOXIDE 29 mmol/L (22-30); CHLORIDE 101 mmol/L (98-107); GLUCOSE 171 mg/dL (75-110); POTASSIUM 4.2 mmol/L (3.6-5.0); SODIUM 139.1 mmol/L (137-145); TOTAL PROTEIN 7.4 g/dL (6.3-8.2)
--- NOTE | 2018-12-27 22:16 | RADIOLOGY REPORT (SQ) ---
EXAM DESCRIPTION: XR ABDOMEN 1 VIEW (KUB) COMPLETED DATE/TME: 12/27/2018 21:01 CLINICAL HISTORY: 38 years, Female, no BM x4 days, abd pain COMPARISON: None. NUMBER OF VIEWS: One TECHNIQUE: Single frontal view of the abdomen was obtained LIMITATIONS: None. FINDINGS: Gas and a minimal amount of stool are noted throughout the large bowel. However, there is minimal small bowel gas which limits the evaluation of its caliber. Scattered phleboliths project over the pelvic inlet. No suspicious osseous anomalies are appreciated. There are no suspicious soft tissue calcifications. No obvious subdiaphragmatic free appears appreciated. IMPRESSION: Indeterminate bowel gas pattern. Mild colonic stool load. copyright 2010 [employer]- All Rights Reserved
[2018-12-27] MEDS ORDERED: MAGNESIUM CITRATE 296 ML BOTTLE PO ONE (22:53)
--- NOTE | 2018-12-27 22:59 | ER Document Report ---
ED General - General Chief Complaint: Constipation Stated Complaint: NO BOWEL MOVEMENT,RIHGT SIDE PAIN Time Seen by Provider: 12/27/18 21:01 Mode of Arrival: Ambulatory TRAVEL OUTSIDE OF THE [place] IN LAST 30 DAYS: No - HPI Notes: Patient is a 38-year-old female that presents to the emergency department for chief complaint of constipation. Patient reports no bowel movement in the last 4 days. She states she is having crampy pain on her right side that radiates across to the left and into her low back and pelvis. She states that she feels distended. She does take Colace jesse ly and has a history of constipation. She reports no nausea, vomiting or fevers. She took 1 extra Dulcolax this morning and a dose of milk of magnesia today without bowel movement. She denies any aggravating or relieving factors to her pain. Past Medical History: Diabetes, hypertension Past Surgical History: Negative Social History: Denies drugs alcohol and tobacco Family History: Reviewed and noncontributory for presenting illness Allergies: Reviewed, see documented allergy list. REVIEW OF SYSTEMS: CONSTITUTIONAL : No fever No chills No diaphoresis No recent illness EENT: No vision changes No congestion No sore throat CARDIOVASCULAR: No chest pain No palpitations RESPIRATORY: No shortness of breath No cough No difficulty breathing GASTROINTESTINAL: abdominal pain Constipation No nausea No vomiting No diarrhea GENITOURINARY: No dysuria No hematuria No difficulty urinating MUSCULOSKELETAL: No back pain No leg pain No arm pain SKIN: No rashes No lesions LYMPHATIC: No swollen, enlarged glands. NEUROLOGICAL: No lightheadedness No headache No weakness No paresthesias PSYCHIATRIC: No anxiety No depression PHYSICAL EXAMINATION: Vital signs reviewed, nursing noted reviewed. GENERAL: Well-appearing, well-nourished and in no acute distress. HEAD: Atraumatic, normocephalic. EYES: Eyes appear normal, extraocular movements intact, sclera anicteric, conjunctiva are normal. ENT: nares patent, oropharynx clear without exudates. Moist mucous membranes. NECK: Normal range of motion, supple without lymphadenopathy LUNGS: Breath sounds clear to auscultation bilaterally and equal. No wheezes rales or rhonchi. HEART: Regular rate and rhythm without murmurs ABDOMEN: Protuberant, soft, mild diffuse tenderness, normoactive bowel sounds. No rebound, guarding, or rigidity. No masses appreciated. EXTREMITIES: Nontender, good range of motion, no pitting or edema. NEUROLOGICAL: No focal neurological deficits. Moves all extremities spontaneously Motor and sensory grossly intact on exam. PSYCH: Normal mood, normal affect. SKIN: Warm, Dry, normal turgor, no rashes or lesions noted on exposed skin - Related Data Allergies/Adverse Reactions: No Known Allergies Allergy (Verified 10/11/18 10:07) Past Medical History - General Information source: Patient - Social History Smoking Status: Never Smoker Chew tobacco use (# tins/day): No Frequency of alcohol use: Occasional Drug Abuse: None Family History: Arthritis, DM, Hyperlipidemia, Other - Lupus Patient has suicidal ideation: No Patient has homicidal ideation: No - Past Medical History Cardiac Medical History: Reports: Hx Hypertension Denies: Hx Coronary Artery Disease, Hx Heart Attack Pulmonary Medical History: Denies: Hx Asthma, Hx Bronchitis, Hx COPD, Hx Pneumonia Neurological Medical History: Denies: Hx Cerebrovascular Accident, Hx Seizures Endocrine Medical History: Reports: Hx Diabetes Mellitus Type 2 Renal/ Medical History: Denies: Hx Peritoneal Dialysis Musculoskeletal Medical History: Denies Hx Arthritis - Immunizations Hx Diphtheria, Pertussis, Tetanus Vaccination: No Physical Exam - Vital signs Vitals: Temp Pulse Resp BP Pulse Ox 98.6 F 110 H 16 135/93 H 99 12/27/18 20:44 12/27/18 20:44 12/27/18 20:44 12/27/18 20:44 12/27/18 20:44 Course - Re-evaluation Re-evalutation: 12/27/18 22:57 Vitals reviewed. Nursing notes reviewed. Patient's KUB shows a moderate stool burden consistent with her constipation. Her blood work is unremarkable with the exception of hyperglycemia. She is a known diabetic with no signs of acute DKA or electrolyte derangement. Patient does have mild diffuse abdominal tenderness with no focal tenderness in the right upper lower quadrant to suggest acute cholecystitis or appendicitis. Her symptoms likely are related to her constipation. She will be given magnesium citrate and was counseled on taking MiraLAX at home. She will also continue taking her daily stool softener. She will return for new or worsening symptoms. She is stable at discharge. Laboratory 12/27/18 12/27/18 12/27/18 21:25 21:25 21:25 WBC 9.7 RBC 4.37 Hgb 13.4 Hct 38.5 MCV 88 MCH 30.6 MCHC 34.7 RDW 13.1 Plt Count 430 Seg Neutrophils % 59.3 Lymphocytes % 30.0 Monocytes % 7.6 Eosinophils % 2.7 Basophils % 0.4 Absolute Neutrophils 5.7 Absolute Lymphocytes 2.9 Absolute Monocytes 0.7 Absolute Eosinophils 0.3 Absolute Basophils 0.0 Sodium 139.1 Potassium 4.2 Chloride 101 Carbon Dioxide 29 Anion Gap 9 BUN 13 Creatinine 0.87 Est GFR ( Amer) > 60 Est GFR (Non-Af Amer) > 60 Glucose 171 H Calcium 9.8 Total Bilirubin 0.3 Direct Bilirubin 0.3 Neonat Total Bilirubin Not Reportable Neonat Direct Bilirubin Not Reportable Neonat Indirect Bili Not Reportable AST 17 ALT 26 Alkaline Phosphatase 77 Total Protein 7.4 Albumin 4.2 Lipase 56.0 Serum HCG, Qual NEGATIVE Urine Color Urine Appearance Urine pH Ur Specific Sunflower Urine Protein Urine Glucose (UA) Urine Ketones Urine Blood Urine Nitrite Urine Bilirubin Urine Urobilinogen Ur Leukocyte Esterase Urine WBC (Auto) Urine RBC (Auto) U Hyaline Cast (Auto) Urine Bacteria (Auto) Squamous Epi Cells Auto Urine Mucus (Auto) Urine Ascorbic Acid 12/27/18 21:25 WBC RBC Hgb Hct MCV MCH MCHC RDW Plt Count Seg Neutrophils % Lymphocytes % Monocytes % Eosinophils % Basophils % Absolute Neutrophils Absolute Lymphocytes Absolute Monocytes Absolute Eosinophils Absolute Basophils Sodium Potassium Chloride Carbon Dioxide Anion Gap BUN Creatinine Est GFR ( Amer) Est GFR (Non-Af Amer) Glucose Calcium Total Bilirubin Direct Bilirubin Neonat Total Bilirubin Neonat Direct Bilirubin Neonat Indirect Bili AST ALT Alkaline Phosphatase Total Protein Albumin Lipase Serum HCG, Qual Urine Color YELLOW Urine Appearance SLIGHTLY-CLOUDY Urine pH 5.0 Ur Specific Sunflower 1.016 Urine Protein NEGATIVE Urine Glucose (UA) NEGATIVE Urine Ketones NEGATIVE Urine Blood SMALL H Urine Nitrite NEGATIVE Urine Bilirubin NEGATIVE Urine Urobilinogen NEGATIVE Ur Leukocyte Esterase NEGATIVE Urine WBC (Auto) 1 Urine RBC (Auto) 0 U Hyaline Cast (Auto) 1 Urine Bacteria (Auto) TRACE Squamous Epi Cells Auto 5 Urine Mucus (Auto) RARE Urine Ascorbic Acid NEGATIVE KUB X-Ray 12/27/18 21:01 IMPRESSION: Indeterminate bowel gas pattern. Mild colonic stool load. copyright 2011 [employer]- All Rights Reserved - Vital Signs Vital signs: Temp Pulse Resp BP Pulse Ox 98.6 F 110 H 16 135/93 H 99 12/27/18 20:44 12/27/18 20:44 12/27/18 20:44 12/27/18 20:44 12/27/18 20:44 - Laboratory Result Diagrams: 12/27/18 21:25 12/27/18 21:25 Laboratory results interpreted by me: 12/27/18 12/27/18 21:25 21:25 Glucose 171 H Urine Blood SMALL H Discharge - Discharge Clinical Impression: Constipation Qualifiers: Constipation type: other constipation type Qualified Code(s): K59.09 - Other constipation Abdominal pain Qualifiers: Abdominal location: generalized Qualified Code(s): R10.84 - Generalized abdominal pain Condition: Stable Disposition: HOME, SELF-CARE Additional Instructions: Please return to the emergency department if you have any worsening, or concern of your symptoms. Please return to the emergency department if you develop chest pain, difficulty breathing, severe abdominal pain, or ongoing vomiting. Please follow-up with your primary care physician in 2-3 days and any other recommended physicians. If prescribed, take all medications as directed. If you have any questions or concerns do not hesitate to return the emergency department for evaluation. Take MiraLAX at home as needed for constipation. You can take a dose of MiraLAX every 20 minutes until you have a bowel movement and then stop. Alternatively you can try taking it 2-3 times daily to achieve soft daily bowel movements. If you begin having diarrhea cut back or stop taking the MiraLAX. Referrals: [facility] [Provider Group] - Follow up as needed
[2018-12-27 23:10] VITALS: BP 138/73
== END 2018-12-27 23:08 | disposition home or self-care (01) ==
LOC: ER 20:38
DX: K59.00 Constipation, unspecified (principal); Z79.899 Other long term (current) drug therapy; E11.65 Type 2 diabetes mellitus with hyperglycemia; R10.84 Generalized abdominal pain; I10 Essential (primary) hypertension
CPT/HCPCS: 99283; 96372; 36415; 83690; 84703; 85025; 80053; 81001; 74018; J3490; J1885